=== PATIENT | male | born 1945 | race Caucasian/White ===

== ENCOUNTER → 2016-07-08 | Outpatient (REF) | payer OTHER | LOC: M SFHCPLAZ 15:40 | PROVIDERS: ATTEND Dermatology | DX: L82.0 Inflamed seborrheic keratosis (principal); C44.42 Squamous cell carcinoma of skin of scalp and neck ==

== ENCOUNTER → 2016-08-21 | Outpatient (REF) | payer OTHER | LOC: M LAB REF 13:09 | PROVIDERS: ATTEND Surgery | DX: C44.42 Squamous cell carcinoma of skin of scalp and neck (principal) ==

== ENCOUNTER → 2016-10-22 | Outpatient (REF) | payer OTHER ==
[2016-10-22 19:23] LABS: MEAN CORPUSCULAR HEMOGLOBIN 31.9 pg (27.0-33.0); MEAN CORPUSCULAR VOLUME 96.7 fl (80.0-96.0); WHITE BLOOD COUNT 7.4 K/mm3 (4.0-10.0)
[2016-10-22 19:35] LABS: ALBUMIN 3.9 GM/DL (3.2-5.2); ALBUMIN/GLOBULIN RATIO 1.22 (1.00-1.93); ALKALINE PHOSPHATASE 66 U/L (45-117); ALT/SGPT 22 U/L (12-78); ANION GAP 8 MEQ/L (8-16); AST/SGOT 9 U/L (15-37); BILIRUBIN,TOTAL 0.4 MG/DL (0.2-1.0); BLOOD UREA NITROGEN 13 MG/DL (7-18); CALCIUM LEVEL 8.7 MG/DL (8.8-10.2); CARBON DIOXIDE LEVEL 27 MEQ/L (21-32); CHLORIDE LEVEL 107 MEQ/L (98-107); CHOLESTEROL LEVEL 138 MG/DL (<200); CREATININE FOR GFR 0.95 MG/DL (0.70-1.30); GLOMERULAR FILTRATION RATE > 60.0 (>42); GLUCOSE, FASTING 136 MG/DL (83-110); POTASSIUM SERUM 4.2 MEQ/L (3.5-5.1); SODIUM LEVEL 142 MEQ/L (136-145); TOTAL PROTEIN 7.1 GM/DL (6.4-8.2); TRIGLYCERIDES LEVEL 155 MG/DL (<150)
== END ==
LOC: M SFHCADAM 10:38
PROVIDERS: ATTEND Family Medicine
DX: I25.10 Atherosclerotic heart disease of native coronary artery without angina pectoris (principal); E78.00 Pure hypercholesterolemia, unspecified; Z12.5 Encounter for screening for malignant neoplasm of prostate
CPT/HCPCS: 80053; 80061; 85027; G0103

== ENCOUNTER → 2018-01-13 | Outpatient (REF) | payer OTHER ==
[2018-01-13 11:30] LABS: HEMATOCRIT 44.1 % (42.0-52.0); HEMOGLOBIN 14.6 g/dl (13.5-17.5); MEAN CORPUSCULAR HEMOGLOBIN 32.7 pg (27.0-33.0); MEAN CORPUSCULAR HGB CONC 33.1 g/dl (32.0-36.5); MEAN CORPUSCULAR VOLUME 98.7 fl (80.0-96.0); PLATELET COUNT, AUTOMATED 119 10^3/uL (150-450); RED BLOOD COUNT 4.47 10^6/uL (4.30-6.10); WHITE BLOOD COUNT 6.7 10^3/uL (4.0-10.0)
[2018-01-13 13:07] LABS: ALBUMIN 3.8 GM/DL (3.2-5.2); ALBUMIN/GLOBULIN RATIO 1.27 (1.00-1.93); ALKALINE PHOSPHATASE 60 U/L (45-117); ALT/SGPT 25 U/L (12-78); ANION GAP 5 MEQ/L (8-16); AST/SGOT 13 U/L (7-37); BILIRUBIN,TOTAL 0.5 MG/DL (0.2-1.0); BLOOD UREA NITROGEN 14 MG/DL (7-18); CALCIUM LEVEL 8.8 MG/DL (8.8-10.2); CARBON DIOXIDE LEVEL 29 MEQ/L (21-32); CHLORIDE LEVEL 108 MEQ/L (98-107); CHOLESTEROL LEVEL 110 MG/DL (<200); CREATININE FOR GFR 0.93 MG/DL (0.70-1.30); GLOMERULAR FILTRATION RATE > 60.0 (>42); GLUCOSE, FASTING 84 MG/DL (70-100); HDL CHOLESTEROL 26 MG/DL (>40); LDL CHOLESTEROL 62.2 MG/DL (<100); NON-HDL-C 84 MG/DL; POTASSIUM SERUM 4.3 MEQ/L (3.5-5.1); SODIUM LEVEL 142 MEQ/L (136-145); TOTAL PROTEIN 6.8 GM/DL (6.4-8.2); TRIGLYCERIDES LEVEL 109 MG/DL (<150)
== END ==
LOC: M SFHCPLAZ 08:45
DX: I25.10 Atherosclerotic heart disease of native coronary artery without angina pectoris (principal); E78.00 Pure hypercholesterolemia, unspecified; Z12.5 Encounter for screening for malignant neoplasm of prostate
CPT/HCPCS: 80053

== ENCOUNTER → 2018-08-12 | Outpatient (CLI) | payer OTHER ==
--- NOTE | 2018-08-19 13:21 | SLEEPCENT ---
DATE OF PROCEDURE: 08/12/2018 ORDERED BY: CARLIN Mercado Nocturnal polysomnography was performed for evaluation of sleep physiology in this patient with a history of snoring and irregular breathing and sleep who has comorbidity of coronary artery disease. 7 hours and 13 minutes of data were reviewed. There were 386 minutes of sleep identified. Sleep occurred at the extinguishing of the lights. Rapid eye movement (REM) latency was also short at 47 minutes. Sleep architecture was fairly good with four REM cycles, mild fragmentation was seen. Overall sleep efficiency 92.5%. The patient's electrocardiogram showed sinus rhythm with an average heart rate of 44 beats per minute. Rate ranged 40-64. EEG showed fairly normal waveforms for awake and sleep. There were 125 respiratory events identified of 10 seconds in duration or greater for an apnea-hypopnea index of 19.4. The events were more commonly obstructive, but 21 mixed and central apneas were also seen. Respiratory events were not stage nor positionally related. Arousals from respiratory events occurred 15.4 times per hour and oxygen desaturations were seen into the mid 80s. There was some activity in the limb leads, but arousals were few. IMPRESSION: Obstructive sleep apnea syndrome (G47.33). Apnea-hypopnea index 19.4. RECOMMENDATION: The patient should be encouraged to return to the sleep disorder center for pressure therapy. In the interim, alcohol and sedative avoidance should be practiced and caution exercised during operation of motor vehicles. cc: Luís Bojorquez MD
== END ==
LOC: M SLEEP 19:31
PROVIDERS: ATTEND Nurse Practitioner Family
DX: G47.30 Sleep apnea, unspecified (principal)

== ENCOUNTER → 2018-09-01 | Outpatient (CLI) | payer OTHER ==
--- NOTE | 2018-09-07 10:38 | SLEEPCENT ---
DATE OF PROCEDURE: 09/01/2018 ORDERED BY: CARLIN Mercado Nocturnal polysomnography was performed for the titration of pressure therapy in this patient with obstructive sleep apnea syndrome. Apnea-hypopnea index of 19.4. For testing a [employer] and [employer] full face mask was used; 4 cm of water pressure were applied to the circuit and the lights were extinguished. 7 hours and 48 minutes of data were reviewed. There were 392 minutes of sleep identified. Sleep latency was short at 24 minutes. Rapid eye movement (REM) latency was short at 49 minutes. Sleep architecture was good with 4 REM cycles. Overall sleep efficiency was 84.8%. The electrocardiogram showed sinus rhythm with an average heart rate of 66 beats per minute. Occasional premature ventricular contractions (PVCs) were identified. EEG showed normal waveforms for awake and sleep. Respiratory events appeared fairly well palliated at a CPAP pressure of 10 late in the study. The patient moved to the supine posture and experienced additional events. An optimal CPAP pressure is difficult to identify. However, based on the results, initiation of CPAP at a pressure of +12 appeared to be sufficient to overcome most respiratory events particularly out of the supine posture. IMPRESSION: Obstructive sleep apnea syndrome (G47.33). RECOMMENDATIONS: Nightly use of CPAP 12 cm of water ideally with sleep position retraining should be sufficient to address the patient's obstructive respiratory events. If symptoms persist, re-titration may be necessary to overcome supine related obstruction.
== END ==
LOC: M SLEEP 19:31
PROVIDERS: ATTEND Nurse Practitioner Family
DX: G47.33 Obstructive sleep apnea (adult) (pediatric) (principal)

== ENCOUNTER → 2018-09-16 | Outpatient (REF) | payer OTHER ==
[2018-09-16 19:38] LABS: ALBUMIN 4.4 GM/DL (3.2-5.2); ALT/SGPT 25 U/L (12-78); BILIRUBIN,TOTAL 0.6 MG/DL (0.2-1.0); BLOOD UREA NITROGEN 14 MG/DL (7-18); CALCIUM LEVEL 9.3 MG/DL (8.8-10.2); CARBON DIOXIDE LEVEL 26 MEQ/L (21-32); CHLORIDE LEVEL 107 MEQ/L (98-107); CHOLESTEROL LEVEL 139 MG/DL (<200); CHOLESTEROL RISK RATIO 5.346 (<5); CREATININE FOR GFR 0.89 MG/DL (0.70-1.30); GLOMERULAR FILTRATION RATE > 60.0 (>42); GLUCOSE, FASTING 64 MG/DL (70-100); HDL CHOLESTEROL 26 MG/DL (>40); LDL CHOLESTEROL 76 MG/DL (<100); NON-HDL-C 113 MG/DL; POTASSIUM SERUM 4.4 MEQ/L (3.5-5.1); SODIUM LEVEL 140 MEQ/L (136-145); TOTAL PROTEIN 7.6 GM/DL (6.4-8.2); TRIGLYCERIDES LEVEL 183 MG/DL (<150)
[2018-09-16 19:41] LABS: HEMATOCRIT 46.8 % (42.0-52.0); HEMOGLOBIN 15.8 g/dl (13.5-17.5); MEAN CORPUSCULAR HEMOGLOBIN 33.2 pg (27.0-33.0); MEAN CORPUSCULAR HGB CONC 33.8 g/dl (32.0-36.5); MEAN CORPUSCULAR VOLUME 98.3 fl (80.0-96.0); PLATELET COUNT, AUTOMATED 127 10^3/uL (150-450); RED BLOOD COUNT 4.76 10^6/uL (4.30-6.10)
== END ==
LOC: M SFHCADAM 11:46
PROVIDERS: ATTEND Family Medicine
DX: I25.10 Atherosclerotic heart disease of native coronary artery without angina pectoris (principal); E78.00 Pure hypercholesterolemia, unspecified; Z12.5 Encounter for screening for malignant neoplasm of prostate

== ENCOUNTER → 2019-03-24 | Outpatient (REF) | payer OTHER ==
[2019-03-24 12:17] LABS: HEMOGLOBIN 14.1 g/dl (13.5-17.5); MEAN CORPUSCULAR HEMOGLOBIN 32.9 pg (27.0-33.0); MEAN CORPUSCULAR HGB CONC 32.8 g/dl (32.0-36.5); MEAN CORPUSCULAR VOLUME 100.2 fl (80.0-96.0); PLATELET COUNT, AUTOMATED 120 10^3/uL (150-450); RED BLOOD COUNT 4.29 10^6/uL (4.30-6.10); WHITE BLOOD COUNT 5.3 10^3/uL (4.0-10.0)
[2019-03-24 12:40] LABS: ALBUMIN 3.9 GM/DL (3.2-5.2); ALT/SGPT 18 U/L (12-78); BILIRUBIN,TOTAL 0.6 MG/DL (0.2-1.0); BLOOD UREA NITROGEN 14 MG/DL (7-18); CALCIUM LEVEL 8.7 MG/DL (8.8-10.2); CARBON DIOXIDE LEVEL 29 MEQ/L (21-32); CHLORIDE LEVEL 106 MEQ/L (98-107); CHOLESTEROL LEVEL 108 MG/DL (<200); CREATININE FOR GFR 0.87 MG/DL (0.70-1.30); GLOMERULAR FILTRATION RATE > 60.0 (>42); GLUCOSE, FASTING 69 MG/DL (70-100); HDL CHOLESTEROL 24 MG/DL (>40); LDL CHOLESTEROL 63 MG/DL (<100); NON-HDL-C 84 MG/DL; SODIUM LEVEL 141 MEQ/L (136-145); TOTAL PROTEIN 6.8 GM/DL (6.4-8.2); TRIGLYCERIDES LEVEL 106 MG/DL (<150)
== END ==
LOC: M SFHCADAM 08:44
PROVIDERS: ATTEND Family Medicine
DX: I25.10 Atherosclerotic heart disease of native coronary artery without angina pectoris (principal); E78.00 Pure hypercholesterolemia, unspecified; Z12.5 Encounter for screening for malignant neoplasm of prostate

== ENCOUNTER → 2020-08-07 | Outpatient (REF) | payer MEDICARE, OTHER ==
[2020-08-07 17:54] LABS: BASO # 0.1 10^3/uL (0.0-0.2); BASO % 0.7 % (0.0-1.0); EOS # 0.1 10^3/uL (0.0-0.5); EOS % 0.6 % (0.0-3.0); HEMATOCRIT 44.5 % (42.0-52.0); HEMOGLOBIN 14.7 g/dl (13.5-17.5); LYMPH # 1.6 10^3/uL (1.5-5.0); LYMPH % 13.2 % (24.0-44.0); MEAN CORPUSCULAR HEMOGLOBIN 32.2 pg (27.0-33.0); MEAN CORPUSCULAR VOLUME 97.4 fl (80.0-96.0); MONO # 6.2 10^3/uL (0.0-0.8); MONO % 49.9 % (0.0-5.0); NEUTROPHILS # 3.9 10^3/uL (1.5-8.5); NEUTROPHILS % 31.3 % (36.0-66.0); RED BLOOD COUNT 4.57 10^6/uL (4.30-6.10); WHITE BLOOD COUNT 12.5 10^3/uL (4.0-10.0)
[2020-08-07 18:22] LABS: ALBUMIN 4.4 GM/DL (3.2-5.2); ALT/SGPT 18 U/L (12-78); BILIRUBIN,TOTAL 0.5 MG/DL (0.2-1.0); BLOOD UREA NITROGEN 16 MG/DL (7-18); C REACTIVE PROTEIN QUANTITATIV 5.33 MG/DL (0.00-0.30); CALCIUM LEVEL 9.9 MG/DL (8.8-10.2); CARBON DIOXIDE LEVEL 28 MEQ/L (21-32); CHLORIDE LEVEL 101 MEQ/L (98-107); CREATININE FOR GFR 1.12 MG/DL (0.70-1.30); GLOMERULAR FILTRATION RATE > 60.0 (>42); GLUCOSE, FASTING 95 MG/DL (70-100); LIPASE 35 U/L (73-393); POTASSIUM SERUM 5.2 MEQ/L (3.5-5.1); SODIUM LEVEL 136 MEQ/L (136-145); TOTAL PROTEIN 7.9 GM/DL (6.4-8.2)
[2020-08-07 18:31] LABS: PLATELET COUNT, AUTOMATED 49 10^3/uL (150-450)
[2020-08-07 19:30] LABS: ERYTHROCYTE SEDIMENTATION RATE 15 mm/hr (0-20)
== END ==
LOC: M PLALAB 17:05
PROVIDERS: ATTEND Physician Assistant
DX: R10.32 Left lower quadrant pain (principal)

== ENCOUNTER → 2020-08-08 | Outpatient (CLI) | payer MEDICARE, OTHER ==
[~2020-08-08] MED LIST: GASTROGRAFIN SOLUTION 30ML (Q9963) As Ordered ONE; ISOVUE-370 76% 100ML VIAL As Ordered ONE
--- NOTE | 2020-08-08 16:40 | REP ---
INDICATION: LEFT LOWER QUADRANT PAIN, R/O DIVERTICULITIS. COMPARISON: None TECHNIQUE: Axial contrast-enhanced images from the lung bases to the pubic symphysis using oral and 100 cc Isovue 370 intravenous contrast material. Coronal and sagittal reformations obtained. This CT examination was performed using the following dose reduction techniques: Automated exposure control, adjustment of mA and/or kv according to the patient's size, and the use of iterative reconstruction technique. FINDINGS: Colonic and primarily descending and sigmoid diverticulosis is appreciated and there is subtle pericolonic inflammatory stranding involving the region of the splenic flexure and proximal. Descending colon suggesting mild early acute diverticulitis. No associated bowel obstruction, perforation, free air, ascites or drainable collection/abscess. Remainder of the enteric system is grossly normal. Terminal ileum and appendix are identified and unremarkable. Liver, pancreas, gallbladder, bilateral adrenal glands and kidneys are relatively normal. Few scattered small renal hypodensities measuring up to 2 cm likely represent benign cysts. Splenomegaly is appreciated without focal splenic lesion. Pelvis demonstrates normal bladder and mild prostatomegaly with parenchymal calcifications noted. No significant adenopathy. Abdominal aorta and vasculature without aneurysm or dissection. Musculoskeletal structures demonstrate age-related changes without focal osseous abnormality. IMPRESSION: 1. Findings suggest very mild early acute diverticulitis involving the splenic flexure and proximal descending colon. No associated bowel obstruction or perforation. No drainable collection or abscess. 2. Splenomegaly without focal splenic lesion. No adenopathy. 3. Chronic appearing prostatomegaly. <Electronically signed by Micha Tubbs > 08/08/20 [id number]
== END ==
LOC: M RAD 14:36
PROVIDERS: ATTEND Physician Assistant
DX: K57.32 Diverticulitis of large intestine without perforation or abscess without bleeding (principal); R16.1 Splenomegaly, not elsewhere classified; R10.32 Left lower quadrant pain
CPT/HCPCS: 74177; Q9963; Q9967

== ENCOUNTER → 2020-08-17 | Outpatient (CLI) | payer MEDICARE, OTHER ==
--- NOTE | 2020-08-17 11:27 | REP ---
INDICATION: DIVERTICULITIS COMPARISON: Comparison CT study abdomen pelvis August 08, 2020.. TECHNIQUE: Helical scanning is acquired in 4 mm axial images were reformatted. Coronal and sagittal MPR images were generated and reviewed. FINDINGS: Preliminary digital managing director radiograph demonstrates an unremarkable bowel gas pattern. The lung bases are essentially clear. There is no evidence of pleural effusion. Moderate splenic enlargement is again seen. The spleen measures 17.8 cm in craniocaudal span by 17.4 cm anteroposterior. It is unchanged. No focal splenic lesion is seen. No focal liver lesion is seen. Normal adrenal glands are observed. There are 1 or 2 portal caval lymph nodes in the upper abdomen unchanged. The largest of these has a 14 mm short axis dimension. There are scattered normal sized periaortic lymph nodes. No definite adenopathy. No evidence of hydronephrosis. There is a small cyst in the right kidney posteriorly. This is unchanged. Normal caliber aorta. A normal appendix is seen posterior to the cecum in the right lower quadrant. There are dystrophic calcifications in the enlarged prostate. Seminal vesicles and urinary bladder are unremarkable. Left colonic diverticulosis is seen in the descending colon. The previously noted para colonic streaking and paracolic gutter fluid have resolved. There is no current CT evidence of diverticulitis. No abdominal wall defect is seen. No bony destructive lesion is appreciated. IMPRESSION: Moderate splenomegaly. Left colonic diverticulosis. Previously noted pericolic gutter streaking resolved. No current CT evidence of diverticulitis. Normal appendix. <Electronically signed by Andrade Licona > 08/17/20 [id number]
[2020-08-17 12:01] LABS: HEMATOCRIT 38.9 % (42.0-52.0); HEMOGLOBIN 13.1 g/dl (13.5-17.5); MEAN CORPUSCULAR HEMOGLOBIN 32.9 pg (27.0-33.0); MEAN CORPUSCULAR HGB CONC 33.7 g/dl (32.0-36.5); MEAN CORPUSCULAR VOLUME 97.7 fl (80.0-96.0); RED BLOOD COUNT 3.98 10^6/uL (4.30-6.10)
[2020-08-17 12:20] LABS: ALBUMIN 3.6 GM/DL (3.2-5.2); ALT/SGPT 19 U/L (12-78); BILIRUBIN,TOTAL 0.4 MG/DL (0.2-1.0); BLOOD UREA NITROGEN 14 MG/DL (7-18); C REACTIVE PROTEIN QUANTITATIV 5.36 MG/DL (0.00-0.30); CALCIUM LEVEL 8.9 MG/DL (8.8-10.2); CARBON DIOXIDE LEVEL 23 MEQ/L (21-32); CHLORIDE LEVEL 104 MEQ/L (98-107); CREATININE FOR GFR 0.94 MG/DL (0.70-1.30); GLOMERULAR FILTRATION RATE > 60.0 (>42); GLUCOSE, FASTING 153 MG/DL (70-100); POTASSIUM SERUM 3.9 MEQ/L (3.5-5.1); SODIUM LEVEL 136 MEQ/L (136-145); TOTAL PROTEIN 6.5 GM/DL (6.4-8.2)
[2020-08-17 13:36] LABS: PLATELET COUNT, AUTOMATED 21 10^3/uL (150-450); WHITE BLOOD COUNT 35.6 10^3/uL (4.0-10.0)
[2020-08-17 13:38] LABS: BLAST CELLS 71 % (0-0); LYMPHOCYTES 13 % (16-44); NEUTROPHILS 16 % (28-66)
[2020-08-17 13:39] LABS: PLATELET ESTIMATE MARKED DECREASE (NORMAL); SMUDGE CELLS 1+
== END ==
LOC: M RAD 11:00
PROVIDERS: ATTEND Family Medicine
DX: K57.30 Diverticulosis of large intestine without perforation or abscess without bleeding (principal); R16.1 Splenomegaly, not elsewhere classified; N28.1 Cyst of kidney, acquired; K57.92 Diverticulitis of intestine, part unspecified, without perforation or abscess without bleeding

== ENCOUNTER → 2020-08-17 | Outpatient (REF) | payer MEDICARE, OTHER | LOC: M SFHCADAM 09:52 | PROVIDERS: ATTEND Family Medicine | DX: K57.92 Diverticulitis of intestine, part unspecified, without perforation or abscess without bleeding (principal) ==

== ENCOUNTER → 2020-08-21 | Outpatient (CLI) | payer MEDICARE, OTHER ==
[2020-08-21 14:42] LABS: HEMOGLOBIN 11.5 g/dl (13.5-17.5); MEAN CORPUSCULAR HEMOGLOBIN 31.9 pg (27.0-33.0); MEAN CORPUSCULAR HGB CONC 31.9 g/dl (32.0-36.5); MEAN CORPUSCULAR VOLUME 99.7 fl (80.0-96.0); RED BLOOD COUNT 3.61 10^6/uL (4.30-6.10); WHITE BLOOD COUNT 25.9 10^3/uL (4.0-10.0)
[2020-08-21 14:48] LABS: PLATELET COUNT, AUTOMATED 12 10^3/uL (150-450)
== END ==
LOC: M LAB 13:51
PROVIDERS: ATTEND Internal Medicine Hematology & Oncology
DX: H91.90 Unspecified hearing loss, unspecified ear (principal); D50.9 Iron deficiency anemia, unspecified

== ENCOUNTER → 2020-08-22 | Outpatient (CLI) | payer MEDICARE, OTHER | LOC: M LAB 16:06 | PROVIDERS: ATTEND Internal Medicine Hematology & Oncology | DX: C92.00 Acute myeloblastic leukemia, not having achieved remission (principal) ==

== ENCOUNTER 2020-08-23 07:58 | Outpatient (CLI) | payer MEDICARE, OTHER ==
[~2020-08-23] VITALS: Ht 182.9 cm; Wt 97.2 kg
[~2020-08-23 07:58] MED LIST changes: +ACETAMINOPHEN TAB 650MG DOSE (2X325MG) PO SCH; -GASTROGRAFIN SOLUTION 30ML (Q9963) As Ordered ONE; -ISOVUE-370 76% 100ML VIAL As Ordered ONE; +SODIUM CHLORIDE 0.9% INJ 10 ML SYR IV PRN; +diphenhydrAMINE 25MG CAP PO SCH
[2020-08-23 08:00] VITALS: BP 137/60
[2020-08-23 08:44] VITALS: BP 137/60
[2020-08-23 09:00] VITALS: BP 101/51
[2020-08-23] MEDS ORDERED: SODIUM CHLORIDE 0.9% INJ 10 ML SYR IV SCH (09:00)
[2020-08-23 09:45] VITALS: BP 107/52
[2020-08-23 10:00] VITALS: BP 111/61
== END 2020-08-23 10:00 | disposition home or self-care (01) ==
LOC: M INFU 07:58
PROVIDERS: ATTEND Internal Medicine Hematology & Oncology
DX: C92.00 Acute myeloblastic leukemia, not having achieved remission (principal)

== ENCOUNTER → 2020-08-24 | Outpatient (CLI) | payer MEDICARE, OTHER ==
[2020-08-24 12:06] LABS: HEMATOCRIT 33.8 % (42.0-52.0); MEAN CORPUSCULAR HEMOGLOBIN 32.7 pg (27.0-33.0); MEAN CORPUSCULAR HGB CONC 32.5 g/dl (32.0-36.5); MEAN CORPUSCULAR VOLUME 100.6 fl (80.0-96.0); RED BLOOD COUNT 3.36 10^6/uL (4.30-6.10)
[2020-08-24 12:14] LABS: WHITE BLOOD COUNT 39.7 10^3/uL (4.0-10.0)
[2020-08-24 12:15] LABS: PLATELET COUNT, AUTOMATED 15 10^3/uL (150-450)
== END ==
LOC: M LAB 10:30
PROVIDERS: ATTEND Internal Medicine Hematology & Oncology
DX: C92.00 Acute myeloblastic leukemia, not having achieved remission (principal)

== ENCOUNTER 2020-09-04 12:30 | Outpatient (CLI) | payer MEDICARE, OTHER ==
[~2020-09-04] VITALS: Ht 182.9 cm; Wt 97.2 kg
[2020-09-04] MEDS ORDERED: diphenhydrAMINE 25MG CAP PO ONE (12:35)
[2020-09-04] MEDS ORDERED: ACETAMINOPHEN TAB 650MG DOSE (2X325MG) PO ONE (12:35)
[2020-09-04 12:44] VITALS: BP 132/60
[2020-09-04 13:06] VITALS: BP 132/60
[2020-09-04 13:29] VITALS: BP 117/59
[2020-09-04 14:35] VITALS: BP 122/56
[2020-09-04 14:45] VITALS: BP 122/56
[2020-09-04 14:58] LABS: HEMATOCRIT 24.5 % (42.0-52.0); HEMOGLOBIN 7.8 g/dl (13.5-17.5); MEAN CORPUSCULAR HEMOGLOBIN 31.5 pg (27.0-33.0); MEAN CORPUSCULAR HGB CONC 31.8 g/dl (32.0-36.5); MEAN CORPUSCULAR VOLUME 98.8 fl (80.0-96.0); RED BLOOD COUNT 2.48 10^6/uL (4.30-6.10)
[2020-09-04 15:03] LABS: WHITE BLOOD COUNT 0.9 10^3/uL (4.0-10.0)
[2020-09-04 15:07] LABS: PLATELET COUNT, AUTOMATED 6 10^3/uL (150-450)
== END 2020-09-04 14:45 | disposition home or self-care (01) ==
LOC: M INFU 12:30
PROVIDERS: ATTEND Internal Medicine Hematology & Oncology
DX: C92.00 Acute myeloblastic leukemia, not having achieved remission (principal); Z88.1 Allergy status to other antibiotic agents
CPT/HCPCS: 36430; 85027; 85049; 85055; P9034

== ENCOUNTER 2020-09-05 12:05 | Outpatient (CLI) | payer MEDICARE, OTHER ==
[~2020-09-05] VITALS: Ht 182.9 cm; Wt 97.2 kg
[2020-09-05 12:00] VITALS: BP 136/66
[~2020-09-05 12:05] MED LIST changes: -SODIUM CHLORIDE 0.9% INJ 10 ML SYR IV PRN
[2020-09-05 13:15] VITALS: BP 128/64
[2020-09-05 14:15] VITALS: BP 132/66
[2020-09-05 14:55] LABS: HEMATOCRIT 23.3 % (42.0-52.0); HEMOGLOBIN 7.6 g/dl (13.5-17.5); MEAN CORPUSCULAR HEMOGLOBIN 31.9 pg (27.0-33.0); MEAN CORPUSCULAR HGB CONC 32.6 g/dl (32.0-36.5); MEAN CORPUSCULAR VOLUME 97.9 fl (80.0-96.0); RED BLOOD COUNT 2.38 10^6/uL (4.30-6.10); WHITE BLOOD COUNT 1.1 10^3/uL (4.0-10.0)
[2020-09-05 14:58] LABS: PLATELET COUNT, AUTOMATED 9 10^3/uL (150-450)
[2020-09-05 15:00] VITALS: BP 124/58
== END 2020-09-05 15:00 | disposition home or self-care (01) ==
LOC: M INFU 12:05
PROVIDERS: ATTEND Internal Medicine Hematology & Oncology
DX: C92.00 Acute myeloblastic leukemia, not having achieved remission (principal)
CPT/HCPCS: 36430; 36592; 85027; 85049; 85055; P9034

== ENCOUNTER → 2020-09-06 | Outpatient (CLI) | payer MEDICARE, OTHER ==
[~2020-09-06] MED LIST changes: -ACETAMINOPHEN TAB 650MG DOSE (2X325MG) PO SCH; +ACYC400T PO; +ALLO10TA PO; +ASPI81CH33 PO; +CIPR-249 PO; +CIPR500S PO; +D31000TA2 PO; +FLUC100T PO; +FLUC200T2 PO; +LIPI10TA PO; +PROC10TA4 PO; +PROC5TAB57 PO; +RA S8.6T3 PO; +TIMO0.2529 OU; +VENC100T PO; +VIDA100I IV; -diphenhydrAMINE 25MG CAP PO SCH
[2020-09-06 13:58] LABS: HEMATOCRIT 26.3 % (42.0-52.0); HEMOGLOBIN 8.6 g/dl (13.5-17.5); MEAN CORPUSCULAR HEMOGLOBIN 31.6 pg (27.0-33.0); MEAN CORPUSCULAR HGB CONC 32.7 g/dl (32.0-36.5); MEAN CORPUSCULAR VOLUME 96.7 fl (80.0-96.0); RED BLOOD COUNT 2.72 10^6/uL (4.30-6.10); WHITE BLOOD COUNT 1.2 10^3/uL (4.0-10.0)
[2020-09-06 14:00] LABS: PLATELET COUNT, AUTOMATED 3 10^3/uL (150-450)
== END ==
LOC: M LAB 13:39
PROVIDERS: ATTEND Internal Medicine Hematology & Oncology
DX: H91.90 Unspecified hearing loss, unspecified ear (principal); Z79.899 Other long term (current) drug therapy

== ENCOUNTER 2020-09-07 08:31 | Outpatient (CLI) | payer MEDICARE, OTHER ==
[~2020-09-07] VITALS: Ht 182.9 cm; Wt 88.6 kg
[~2020-09-07 08:31] MED LIST changes: +ACETAMINOPHEN TAB 650MG DOSE (2X325MG) PO SCH; -ACYC400T PO; -ALLO10TA PO; -ASPI81CH33 PO; -CIPR-249 PO; -CIPR500S PO; -D31000TA2 PO; -FLUC100T PO; -FLUC200T2 PO; -LIPI10TA PO; -PROC10TA4 PO; -PROC5TAB57 PO; -RA S8.6T3 PO; -TIMO0.2529 OU; -VENC100T PO; -VIDA100I IV; +diphenhydrAMINE 25MG CAP PO SCH
[2020-09-07 09:06] VITALS: BP 112/61
[2020-09-07] MEDS ORDERED: VIDA100I IV (09:18)
[2020-09-07] MEDS ORDERED: LIPI10TA PO (09:18)
[2020-09-07] MEDS ORDERED: PROC5TAB57 PO (09:18)
[2020-09-07] MEDS ORDERED: CIPR-249 PO (09:18)
[2020-09-07] MEDS ORDERED: FLUC200T2 PO (09:18)
[2020-09-07] MEDS ORDERED: FLUC100T PO (09:18)
[2020-09-07] MEDS ORDERED: VENC100T PO (09:18)
[2020-09-07] MEDS ORDERED: ACYC400T PO (09:18)
[2020-09-07] MEDS ORDERED: ALLO10TA PO (09:18)
[2020-09-07] MEDS ORDERED: ASPI81CH33 PO (09:18)
[2020-09-07 09:45] VITALS: BP 118/57
[2020-09-07 10:45] VITALS: BP 117/58
[2020-09-07 11:20] VITALS: BP 123/80
[2020-09-07 11:44] LABS: HEMATOCRIT 22.3 % (42.0-52.0); HEMOGLOBIN 7.5 g/dl (13.5-17.5); MEAN CORPUSCULAR HEMOGLOBIN 31.9 pg (27.0-33.0); MEAN CORPUSCULAR HGB CONC 33.6 g/dl (32.0-36.5); MEAN CORPUSCULAR VOLUME 94.9 fl (80.0-96.0); RED BLOOD COUNT 2.35 10^6/uL (4.30-6.10)
[2020-09-07 11:56] LABS: WHITE BLOOD COUNT 0.8 10^3/uL (4.0-10.0)
[2020-09-07 11:57] LABS: PLATELET COUNT, AUTOMATED 11 10^3/uL (150-450)
[2020-09-07 12:20] VITALS: BP 118/72
[2020-09-07 13:20] VITALS: BP 124/78
== END 2020-09-07 13:20 | disposition home or self-care (01) ==
LOC: M INFU 08:31
PROVIDERS: ATTEND Internal Medicine Hematology & Oncology
DX: C92.00 Acute myeloblastic leukemia, not having achieved remission (principal)
CPT/HCPCS: 36430; 36592; 85027; 85049; 85055; P9036

== ENCOUNTER 2020-09-09 11:38 | Emergency (ER) | payer MEDICARE, OTHER ==
[~2020-09-09] VITALS: Ht 185.4 cm; Wt 88.6 kg
[~2020-09-09 11:38] MED LIST changes: -ACETAMINOPHEN TAB 650MG DOSE (2X325MG) PO SCH; +ACYC400T PO; +ALLO10TA PO; +ASPI81CH33 PO; +CIPR-249 PO; +FLUC100T PO; +FLUC200T2 PO; +LIPI10TA PO; +PROC5TAB57 PO; +VENC100T PO; +VIDA100I IV; -diphenhydrAMINE 25MG CAP PO SCH
[2020-09-09] MEDS ORDERED: RA S8.6T3 PO (12:13)
[2020-09-09] MEDS ORDERED: D31000TA2 PO (12:13)
[2020-09-09] MEDS ORDERED: TIMO0.2529 OU (12:13)
[2020-09-09] MEDS ORDERED: PROC10TA4 PO (12:14)
[2020-09-09] MEDS ORDERED: CIPR500S PO (12:16)
[2020-09-09 13:01] LABS: HEMATOCRIT 23.3 % (42.0-52.0); HEMOGLOBIN 7.7 g/dl (13.5-17.5); MEAN CORPUSCULAR HEMOGLOBIN 30.9 pg (27.0-33.0); MEAN CORPUSCULAR VOLUME 93.6 fl (80.0-96.0); RED BLOOD COUNT 2.49 10^6/uL (4.30-6.10)
[2020-09-09 13:02] LABS: PLATELET COUNT, AUTOMATED 3 10^3/uL (150-450); WHITE BLOOD COUNT 0.9 10^3/uL (4.0-10.0)
[2020-09-09 13:10] LABS: INR 1.25
[2020-09-09 13:11] LABS: PARTIAL THROMBOPLASTIN TIME 33.2 SECONDS (24.2-38.5)
[2020-09-09 13:19] LABS: EOSINOPHILS 2 % (0-3); LYMPHOCYTES 86 % (16-44); MONOCYTES 3 % (0-5); NEUTROPHILS 9 % (28-66)
[2020-09-09 13:20] LABS: PLATELET ESTIMATE MARKED DECREASE (NORMAL)
[2020-09-09 13:32] LABS: ALBUMIN 3.4 GM/DL (3.2-5.2); ALT/SGPT 18 U/L (12-78); BILIRUBIN,DIRECT 0.2 MG/DL (0.0-0.2); BILIRUBIN,TOTAL 0.7 MG/DL (0.2-1.0); BLOOD UREA NITROGEN 14 MG/DL (7-18); CALCIUM LEVEL 8.6 MG/DL (8.8-10.2); CARBON DIOXIDE LEVEL 25 MEQ/L (21-32); CHLORIDE LEVEL 109 MEQ/L (98-107); CK-MB VALUE MASS < 1.0 NG/ML (<3.6); CPK CREATINE PHOSPHOKINASE 12 U/L (39-308); CREATININE FOR GFR 0.81 MG/DL (0.70-1.30); GLOMERULAR FILTRATION RATE > 60.0 (>42); GLUCOSE, FASTING 88 MG/DL (70-100); LIPASE 38 U/L (73-393); MB/CK RELATIVE INDEX 8.33 (< OR =4); SODIUM LEVEL 138 MEQ/L (136-145); TOTAL PROTEIN 6.4 GM/DL (6.4-8.2); TROPONIN I < 0.02 NG/ML (< 0.10)
[2020-09-09] MEDS ORDERED: diphenhydrAMINE 50MG/ML VIAL (J1200) IV STA (14:39)
[2020-09-09] MEDS ORDERED: ACETAMINOPHEN TAB 650MG DOSE (2X325MG) PO ONE (14:40)
[2020-09-09 15:31] LABS: RSV AMPLIFICATION NEGATIVE (NEGATIVE)
[2020-09-09 16:04] VITALS: BP 123/59
[2020-09-09 16:19] VITALS: BP 116/70
[2020-09-09 17:10] VITALS: BP 122/65
[2020-09-09 18:30] VITALS: BP 113/55
== END 2020-09-09 18:40 | disposition short-term general hospital (02) ==
LOC: M ED 11:38
DX: D69.6 Thrombocytopenia, unspecified (principal); D61.818 Other pancytopenia; N40.0 Benign prostatic hyperplasia without lower urinary tract symptoms; E78.9 Disorder of lipoprotein metabolism, unspecified; E21.3 Hyperparathyroidism, unspecified; G47.33 Obstructive sleep apnea (adult) (pediatric); I34.1 Nonrheumatic mitral (valve) prolapse; C92.00 Acute myeloblastic leukemia, not having achieved remission; Z95.5 Presence of coronary angioplasty implant and graft; Z79.899 Other long term (current) drug therapy; Z87.891 Personal history of nicotine dependence
CPT/HCPCS: 36430; 80048; 80076; 82550; 82553; 83690; 84484; 85025; 85049; 85055; 85610; 85730; 86850; 86900; 86901; 87631; 96374; 99285; J1200; P9034

== ENCOUNTER → 2020-09-11 | Outpatient (CLI) | payer MEDICARE, OTHER ==
[~2020-09-11] MED LIST changes: +CIPR500S PO; +D31000TA2 PO; +PROC10TA4 PO; +RA S8.6T3 PO; +TIMO0.2529 OU
[2020-09-11 15:42] LABS: BASO % 1.1 % (0.0-1.0); HEMATOCRIT 23.2 % (42.0-52.0); HEMOGLOBIN 7.8 g/dl (13.5-17.5); LYMPH # 0.7 10^3/uL (1.5-5.0); LYMPH % 80.2 % (24.0-44.0); MEAN CORPUSCULAR HEMOGLOBIN 30.7 pg (27.0-33.0); MEAN CORPUSCULAR HGB CONC 33.6 g/dl (32.0-36.5); MEAN CORPUSCULAR VOLUME 91.3 fl (80.0-96.0); MONO # 0.1 10^3/uL (0.0-0.8); MONO % 7.7 % (2.0-8.0); RED BLOOD COUNT 2.54 10^6/uL (4.30-6.10)
[2020-09-11 15:49] LABS: WHITE BLOOD COUNT 0.9 10^3/uL (4.0-10.0)
[2020-09-11 15:50] LABS: NEUTROPHILS # 0.1 10^3/uL (1.5-8.5); PLATELET COUNT, AUTOMATED 4 10^3/uL (150-450)
[2020-09-11 16:08] LABS: ALBUMIN 3.4 GM/DL (3.2-5.2); ALT/SGPT 20 U/L (12-78); BILIRUBIN,TOTAL 0.6 MG/DL (0.2-1.0); BLOOD UREA NITROGEN 14 MG/DL (7-18); CALCIUM LEVEL 8.3 MG/DL (8.8-10.2); CARBON DIOXIDE LEVEL 26 MEQ/L (21-32); CHLORIDE LEVEL 110 MEQ/L (98-107); CREATININE FOR GFR 0.82 MG/DL (0.70-1.30); GLOMERULAR FILTRATION RATE > 60.0 (>42); GLUCOSE, FASTING 166 MG/DL (70-100); SODIUM LEVEL 139 MEQ/L (136-145); TOTAL PROTEIN 6.4 GM/DL (6.4-8.2)
== END ==
LOC: M LAB 15:25
PROVIDERS: ATTEND Physician Assistant
DX: C92.00 Acute myeloblastic leukemia, not having achieved remission (principal)

== ENCOUNTER 2020-09-12 12:35 | Outpatient (CLI) | payer MEDICARE, OTHER ==
[2020-09-12] VITALS (7 sets, daily range): BP systolic 104–122; BP diastolic 56–77
[2020-09-12] MEDS ORDERED: diphenhydrAMINE 25 MG PO PO ONE (12:45)
[2020-09-12] MEDS ORDERED: ACETAMINOPHEN 650 MG PO PO ONE (12:45)
[2020-09-12 15:32] LABS: HEMATOCRIT 21.7 % (42.0-52.0); HEMOGLOBIN 7.3 g/dl (13.5-17.5); MEAN CORPUSCULAR HEMOGLOBIN 31.2 pg (27.0-33.0); MEAN CORPUSCULAR HGB CONC 33.6 g/dl (32.0-36.5); MEAN CORPUSCULAR VOLUME 92.7 fl (80.0-96.0); RED BLOOD COUNT 2.34 10^6/uL (4.30-6.10)
[2020-09-12 15:37] LABS: WHITE BLOOD COUNT 0.9 10^3/uL (4.0-10.0)
[2020-09-12 15:38] LABS: PLATELET COUNT, AUTOMATED 7 10^3/uL (150-450)
== END 2020-09-12 19:05 | disposition home or self-care (01) ==
LOC: M INFU 12:35
PROVIDERS: ATTEND Internal Medicine Hematology & Oncology
DX: C92.00 Acute myeloblastic leukemia, not having achieved remission (principal)
CPT/HCPCS: 36430; 36592; 85027; 86880; P9034; P9036

== ENCOUNTER 2020-09-14 15:36 | Outpatient (CLI) | payer MEDICARE, OTHER ==
[~2020-09-14] VITALS: Ht 185.4 cm; Wt 91.8 kg
[2020-09-14 15:35] VITALS: BP 112/56
[2020-09-14 16:35] VITALS: BP 96/54
[2020-09-14 17:33] VITALS: BP 107/59
[2020-09-14 18:00] VITALS: BP 102/56
[2020-09-14 18:20] VITALS: BP 102/54
== END 2020-09-14 18:25 | disposition home or self-care (01) ==
LOC: M INFU 15:36
PROVIDERS: ATTEND Internal Medicine Hematology & Oncology
DX: C92.00 Acute myeloblastic leukemia, not having achieved remission (principal)
CPT/HCPCS: 36415; 36430; 85027; 85049; 85055; P9036

== ENCOUNTER → 2020-09-14 | Outpatient (CLI) | payer MEDICARE, OTHER ==
[2020-09-14 09:24] LABS: HEMATOCRIT 22.4 % (42.0-52.0); HEMOGLOBIN 7.5 g/dl (13.5-17.5); MEAN CORPUSCULAR HEMOGLOBIN 31.1 pg (27.0-33.0); MEAN CORPUSCULAR HGB CONC 33.5 g/dl (32.0-36.5); MEAN CORPUSCULAR VOLUME 92.9 fl (80.0-96.0); RED BLOOD COUNT 2.41 10^6/uL (4.30-6.10)
[2020-09-14 09:29] LABS: PLATELET COUNT, AUTOMATED 9 10^3/uL (150-450); WHITE BLOOD COUNT 0.8 10^3/uL (4.0-10.0)
== END ==
LOC: M LAB 08:23
PROVIDERS: ATTEND Internal Medicine Hematology & Oncology
DX: C92.00 Acute myeloblastic leukemia, not having achieved remission (principal)

== ENCOUNTER → 2020-09-17 | Outpatient (CLI) | payer MEDICARE, OTHER ==
[2020-09-17 09:55] LABS: HEMATOCRIT 21.4 % (42.0-52.0); HEMOGLOBIN 7.1 g/dl (13.5-17.5); MEAN CORPUSCULAR HEMOGLOBIN 30.9 pg (27.0-33.0); MEAN CORPUSCULAR HGB CONC 33.2 g/dl (32.0-36.5)
[2020-09-17 10:00] LABS: PLATELET COUNT, AUTOMATED 9 10^3/uL (150-450); WHITE BLOOD COUNT 0.7 10^3/uL (4.0-10.0)
== END ==
LOC: M LAB 09:13
PROVIDERS: ATTEND Internal Medicine Hematology & Oncology
DX: H91.90 Unspecified hearing loss, unspecified ear (principal); Z79.899 Other long term (current) drug therapy

== ENCOUNTER 2020-09-18 13:07 | Outpatient (CLI) | payer MEDICARE, OTHER ==
[~2020-09-18] VITALS: Ht 185.4 cm; Wt 98.1 kg
[~2020-09-18 13:07] MED LIST changes: +ACETAMINOPHEN TAB 650MG DOSE (2X325MG) PO SCH; +diphenhydrAMINE 25MG CAP PO SCH
[2020-09-18 13:25] VITALS: BP 115/64
[2020-09-18 14:01] VITALS: BP 99/52
[2020-09-18 15:10] VITALS: BP 111/51
[2020-09-18 16:05] VITALS: BP 111/51
[2020-09-18 16:20] VITALS: BP 112/52
[2020-09-18 17:31] VITALS: BP 104/56
== END 2020-09-18 17:39 | disposition home or self-care (01) ==
LOC: M INFU 13:07
PROVIDERS: ATTEND Internal Medicine Hematology & Oncology
DX: C92.00 Acute myeloblastic leukemia, not having achieved remission (principal); Z88.1 Allergy status to other antibiotic agents
CPT/HCPCS: 36430; 36592; 86850; 86900; 86901; 86920; P9016; P9034

== ENCOUNTER → 2020-09-19 | Outpatient (CLI) | payer MEDICARE, OTHER ==
[~2020-09-19] MED LIST changes: -ACETAMINOPHEN TAB 650MG DOSE (2X325MG) PO SCH; -diphenhydrAMINE 25MG CAP PO SCH
[2020-09-19 14:56] LABS: HEMATOCRIT 22.7 % (42.0-52.0); HEMOGLOBIN 7.7 g/dl (13.5-17.5); MEAN CORPUSCULAR HEMOGLOBIN 31.6 pg (27.0-33.0); MEAN CORPUSCULAR HGB CONC 33.9 g/dl (32.0-36.5); RED BLOOD COUNT 2.44 10^6/uL (4.30-6.10)
[2020-09-19 15:13] LABS: PLATELET COUNT, AUTOMATED 15 10^3/uL (150-450)
[2020-09-19 15:18] LABS: WHITE BLOOD COUNT 0.9 10^3/uL (4.0-10.0)
== END ==
LOC: M LAB 14:18
PROVIDERS: ATTEND Internal Medicine Hematology & Oncology
DX: H91.90 Unspecified hearing loss, unspecified ear (principal); Z79.899 Other long term (current) drug therapy

== ENCOUNTER → 2020-10-01 | Outpatient (CLI) | payer MEDICARE, OTHER ==
[2020-10-01 12:18] LABS: HEMATOCRIT 22.7 % (42.0-52.0); HEMOGLOBIN 7.4 g/dl (13.5-17.5); MEAN CORPUSCULAR HEMOGLOBIN 31.8 pg (27.0-33.0); MEAN CORPUSCULAR HGB CONC 32.6 g/dl (32.0-36.5); MEAN CORPUSCULAR VOLUME 97.4 fl (80.0-96.0); RED BLOOD COUNT 2.33 10^6/uL (4.30-6.10); WHITE BLOOD COUNT 1.2 10^3/uL (4.0-10.0)
[2020-10-01 13:31] LABS: PLATELET COUNT, AUTOMATED 10 10^3/uL (150-450)
== END ==
LOC: M LAB 11:08
PROVIDERS: ATTEND Internal Medicine Hematology & Oncology
DX: H91.90 Unspecified hearing loss, unspecified ear (principal); Z79.899 Other long term (current) drug therapy

== ENCOUNTER → 2020-10-02 | Outpatient (CLI) | payer MEDICARE, OTHER ==
[~2020-10-02] VITALS: Ht 185.4 cm; Wt 98.1 kg
[2020-10-02 14:06] VITALS: BP 114/68
[2020-10-02 14:20] VITALS: BP 106/57
[2020-10-02 15:20] VITALS: BP 134/58
[2020-10-02 15:55] VITALS: BP 106/52
== END ==
LOC: M INFU 13:37
PROVIDERS: ATTEND Physician Assistant
DX: C92.00 Acute myeloblastic leukemia, not having achieved remission (principal)
CPT/HCPCS: 36430; P9034

== ENCOUNTER → 2020-10-03 | Outpatient (CLI) | payer MEDICARE, OTHER ==
[2020-10-03 15:07] LABS: HEMATOCRIT 22.5 % (42.0-52.0); HEMOGLOBIN 7.5 g/dl (13.5-17.5); MEAN CORPUSCULAR HEMOGLOBIN 31.9 pg (27.0-33.0); MEAN CORPUSCULAR HGB CONC 33.3 g/dl (32.0-36.5); MEAN CORPUSCULAR VOLUME 95.7 fl (80.0-96.0); RED BLOOD COUNT 2.35 10^6/uL (4.30-6.10); WHITE BLOOD COUNT 1.3 10^3/uL (4.0-10.0)
[2020-10-03 15:33] LABS: PLATELET COUNT, AUTOMATED 11 10^3/uL (150-450)
== END ==
LOC: M LAB 14:15
PROVIDERS: ATTEND Internal Medicine Hematology & Oncology
DX: H91.90 Unspecified hearing loss, unspecified ear (principal); Z79.899 Other long term (current) drug therapy

== ENCOUNTER → 2020-10-04 | Outpatient (CLI) | payer MEDICARE, OTHER ==
[~2020-10-04] MED LIST changes: +ACYC1TAB PO; -ACYC400T PO
== END ==
LOC: M LAB 13:37
PROVIDERS: ATTEND Internal Medicine Hematology & Oncology
DX: C92.00 Acute myeloblastic leukemia, not having achieved remission (principal)

== ENCOUNTER 2020-10-05 10:32 | Outpatient (CLI) | payer MEDICARE, OTHER ==
[~2020-10-05] VITALS: Ht 185.4 cm; Wt 98.1 kg
[~2020-10-05 10:32] MED LIST changes: +ACETAMINOPHEN TAB 650MG DOSE (2X325MG) PO SCH; -ACYC1TAB PO; +ACYC400T PO; +diphenhydrAMINE 25MG CAP PO SCH
[2020-10-05 10:57] VITALS: BP 116/54
[2020-10-05 11:10] VITALS: BP 101/55
[2020-10-05 12:44] VITALS: BP 109/54
[2020-10-05 13:00] VITALS: BP 108/83
[2020-10-05 14:19] VITALS: BP 121/59
== END 2020-10-05 14:35 | disposition home or self-care (01) ==
LOC: M INFU 10:32
PROVIDERS: ATTEND Internal Medicine Hematology & Oncology
DX: C92.00 Acute myeloblastic leukemia, not having achieved remission (principal)
CPT/HCPCS: 36430; P9040

== ENCOUNTER → 2020-10-08 | Outpatient (CLI) | payer MEDICARE, OTHER ==
[~2020-10-08] MED LIST changes: -ACETAMINOPHEN TAB 650MG DOSE (2X325MG) PO SCH; -diphenhydrAMINE 25MG CAP PO SCH
[2020-10-08 11:13] LABS: HEMATOCRIT 27.7 % (42.0-52.0); HEMOGLOBIN 9.4 g/dl (13.5-17.5); MEAN CORPUSCULAR HEMOGLOBIN 31.6 pg (27.0-33.0); MEAN CORPUSCULAR HGB CONC 33.9 g/dl (32.0-36.5); MEAN CORPUSCULAR VOLUME 93.3 fl (80.0-96.0); RED BLOOD COUNT 2.97 10^6/uL (4.30-6.10)
[2020-10-08 11:15] LABS: PLATELET COUNT, AUTOMATED 6 10^3/uL (150-450); WHITE BLOOD COUNT 0.8 10^3/uL (4.0-10.0)
== END ==
LOC: M LAB 09:51
PROVIDERS: ATTEND Internal Medicine Hematology & Oncology
DX: H91.93 Unspecified hearing loss, bilateral (principal); Z79.899 Other long term (current) drug therapy

== ENCOUNTER 2020-10-09 11:58 | Outpatient (CLI) | payer MEDICARE, OTHER ==
[~2020-10-09] VITALS: Ht 185.4 cm; Wt 98.1 kg
[~2020-10-09 11:58] MED LIST changes: +ACETAMINOPHEN TAB 650MG DOSE (2X325MG) PO SCH; +diphenhydrAMINE 25MG CAP PO SCH
[2020-10-09 13:20] VITALS: BP 104/58
[2020-10-09 14:20] VITALS: BP 111/54
[2020-10-09 14:50] VITALS: BP 105/55
[2020-10-09 14:55] VITALS: BP 105/55
== END 2020-10-09 14:55 | disposition home or self-care (01) ==
LOC: M INFU 11:58
PROVIDERS: ATTEND Internal Medicine Hematology & Oncology
DX: C92.00 Acute myeloblastic leukemia, not having achieved remission (principal)
CPT/HCPCS: 36430; P9034

== ENCOUNTER → 2020-10-10 | Outpatient (CLI) | payer MEDICARE, OTHER ==
[~2020-10-10] MED LIST changes: -ACETAMINOPHEN TAB 650MG DOSE (2X325MG) PO SCH; -diphenhydrAMINE 25MG CAP PO SCH
[2020-10-10 11:49] LABS: HEMATOCRIT 25.7 % (42.0-52.0); HEMOGLOBIN 8.6 g/dl (13.5-17.5); MEAN CORPUSCULAR HEMOGLOBIN 31.5 pg (27.0-33.0); MEAN CORPUSCULAR HGB CONC 33.5 g/dl (32.0-36.5); MEAN CORPUSCULAR VOLUME 94.1 fl (80.0-96.0); RED BLOOD COUNT 2.73 10^6/uL (4.30-6.10); WHITE BLOOD COUNT 0.7 10^3/uL (4.0-10.0)
[2020-10-10 11:50] LABS: PLATELET COUNT, AUTOMATED 3 10^3/uL (150-450)
== END ==
LOC: M LAB 11:03
PROVIDERS: ATTEND Internal Medicine Hematology & Oncology
DX: H91.90 Unspecified hearing loss, unspecified ear (principal); Z79.899 Other long term (current) drug therapy

== ENCOUNTER 2020-10-11 14:04 | Outpatient (CLI) | payer MEDICARE, OTHER ==
[~2020-10-11 14:04] MED LIST changes: +ACETAMINOPHEN TAB 650MG DOSE (2X325MG) PO SCH; +diphenhydrAMINE 25MG CAP PO SCH
[2020-10-11 14:42] VITALS: BP 107/80
[2020-10-11 15:00] VITALS: BP 107/52
[2020-10-11 16:17] VITALS: BP 110/53
== END 2020-10-11 16:30 | disposition home or self-care (01) ==
LOC: M INFU 14:04
PROVIDERS: ATTEND Internal Medicine Hematology & Oncology
DX: C92.00 Acute myeloblastic leukemia, not having achieved remission (principal)
CPT/HCPCS: 36430; P9034

== ENCOUNTER → 2020-10-12 | Outpatient (CLI) | payer MEDICARE, OTHER ==
[~2020-10-12] MED LIST changes: -ACETAMINOPHEN TAB 650MG DOSE (2X325MG) PO SCH; +ACYC1TAB PO; -ACYC400T PO; -diphenhydrAMINE 25MG CAP PO SCH
[2020-10-12 11:54] LABS: HEMATOCRIT 26.2 % (42.0-52.0); HEMOGLOBIN 8.8 g/dl (13.5-17.5); MEAN CORPUSCULAR HEMOGLOBIN 31.9 pg (27.0-33.0); MEAN CORPUSCULAR HGB CONC 33.6 g/dl (32.0-36.5); MEAN CORPUSCULAR VOLUME 94.9 fl (80.0-96.0); RED BLOOD COUNT 2.76 10^6/uL (4.30-6.10)
[2020-10-12 12:03] LABS: WHITE BLOOD COUNT 0.8 10^3/uL (4.0-10.0)
[2020-10-12 12:04] LABS: PLATELET COUNT, AUTOMATED 7 10^3/uL (150-450)
[2020-10-12 12:12] LABS: ALBUMIN 3.7 GM/DL (3.2-5.2); ALT/SGPT 25 U/L (12-78); BILIRUBIN,TOTAL 0.9 MG/DL (0.2-1.0); BLOOD UREA NITROGEN 13 MG/DL (7-18); CALCIUM LEVEL 9.4 MG/DL (8.8-10.2); CARBON DIOXIDE LEVEL 22 MEQ/L (21-32); CHLORIDE LEVEL 108 MEQ/L (98-107); CREATININE FOR GFR 0.75 MG/DL (0.70-1.30); GLOMERULAR FILTRATION RATE > 60.0 (>42); GLUCOSE, FASTING 120 MG/DL (70-100); POTASSIUM SERUM 4.4 MEQ/L (3.5-5.1); SODIUM LEVEL 135 MEQ/L (136-145); TOTAL PROTEIN 7.1 GM/DL (6.4-8.2)
== END ==
LOC: M LAB 10:53
PROVIDERS: ATTEND Internal Medicine Hematology & Oncology
DX: C92.00 Acute myeloblastic leukemia, not having achieved remission (principal); H91.90 Unspecified hearing loss, unspecified ear

== ENCOUNTER → 2020-10-12 | Outpatient (CLI) | payer MEDICARE, OTHER ==
[2020-10-12] VITALS (7 sets, daily range): BP systolic 107–116; BP diastolic 52–57
[~2020-10-12] VITALS: Ht 185.4 cm; Wt 98.1 kg
== END ==
LOC: M INFU 14:07
PROVIDERS: ATTEND Internal Medicine Hematology & Oncology
DX: C92.00 Acute myeloblastic leukemia, not having achieved remission (principal); H91.90 Unspecified hearing loss, unspecified ear
CPT/HCPCS: 36415; 36430; 80053; 85027; 85049; 85055; P9034

== ENCOUNTER → 2020-10-15 | Outpatient (CLI) | payer MEDICARE, OTHER ==
[2020-10-15 12:36] LABS: HEMATOCRIT 25.5 % (42.0-52.0); HEMOGLOBIN 8.3 g/dl (13.5-17.5); MEAN CORPUSCULAR HEMOGLOBIN 31.1 pg (27.0-33.0); MEAN CORPUSCULAR HGB CONC 32.5 g/dl (32.0-36.5); MEAN CORPUSCULAR VOLUME 95.5 fl (80.0-96.0); RED BLOOD COUNT 2.67 10^6/uL (4.30-6.10)
[2020-10-15 12:43] LABS: PLATELET COUNT, AUTOMATED 23 10^3/uL (150-450); WHITE BLOOD COUNT 0.6 10^3/uL (4.0-10.0)
== END ==
LOC: M LAB 11:14
PROVIDERS: ATTEND Internal Medicine Hematology & Oncology
DX: H91.90 Unspecified hearing loss, unspecified ear (principal)

== ENCOUNTER → 2020-10-17 | Outpatient (CLI) | payer MEDICARE, OTHER ==
[2020-10-17 12:17] LABS: HEMATOCRIT 23.3 % (42.0-52.0); HEMOGLOBIN 7.8 g/dl (13.5-17.5); MEAN CORPUSCULAR HEMOGLOBIN 32.1 pg (27.0-33.0); MEAN CORPUSCULAR HGB CONC 33.5 g/dl (32.0-36.5); MEAN CORPUSCULAR VOLUME 95.9 fl (80.0-96.0); RED BLOOD COUNT 2.43 10^6/uL (4.30-6.10)
[2020-10-17 12:27] LABS: PLATELET COUNT, AUTOMATED 26 10^3/uL (150-450); WHITE BLOOD COUNT 0.5 10^3/uL (4.0-10.0)
== END ==
LOC: M LAB 11:14
PROVIDERS: ATTEND Internal Medicine Hematology & Oncology
DX: H91.90 Unspecified hearing loss, unspecified ear (principal); D50.9 Iron deficiency anemia, unspecified

== ENCOUNTER → 2020-10-19 | Outpatient (CLI) | payer MEDICARE, OTHER ==
[2020-10-19 11:22] LABS: HEMATOCRIT 24.7 % (42.0-52.0); HEMOGLOBIN 8.2 g/dl (13.5-17.5); MEAN CORPUSCULAR HGB CONC 33.2 g/dl (32.0-36.5); MEAN CORPUSCULAR VOLUME 96.5 fl (80.0-96.0); RED BLOOD COUNT 2.56 10^6/uL (4.30-6.10)
[2020-10-19 11:30] LABS: WHITE BLOOD COUNT 0.6 10^3/uL (4.0-10.0)
[2020-10-19 11:31] LABS: PLATELET COUNT, AUTOMATED 28 10^3/uL (150-450)
== END ==
LOC: M LAB 10:22
PROVIDERS: ATTEND Internal Medicine Hematology & Oncology
DX: H91.90 Unspecified hearing loss, unspecified ear (principal)

== ENCOUNTER 2020-10-23 07:26 | Outpatient (CLI) | payer MEDICARE, OTHER ==
[~2020-10-23] VITALS: Ht 185.4 cm; Wt 85.5 kg
[2020-10-23 07:20] VITALS: BP 118/54
[~2020-10-23 07:26] MED LIST changes: +ACETAMINOPHEN TAB 650MG DOSE (2X325MG) PO SCH; +diphenhydrAMINE 25MG CAP PO SCH
[2020-10-23 12:48] VITALS: BP 121/58
[2020-10-23 14:15] VITALS: BP 103/56
[2020-10-23 15:24] VITALS: BP 115/56
[2020-10-23 16:21] VITALS: BP 102/50
[2020-10-23 17:10] VITALS: BP 108/56
== END 2020-10-23 17:10 | disposition home or self-care (01) ==
LOC: M INFU 07:26
PROVIDERS: ATTEND Physician Assistant
DX: C92.00 Acute myeloblastic leukemia, not having achieved remission (principal); Z88.1 Allergy status to other antibiotic agents
CPT/HCPCS: 36430; 36592; 86850; 86900; 86901; 86920; P9040

== ENCOUNTER → 2020-10-24 | Outpatient (CLI) | payer MEDICARE, OTHER ==
[~2020-10-24] MED LIST changes: -ACETAMINOPHEN TAB 650MG DOSE (2X325MG) PO SCH; -diphenhydrAMINE 25MG CAP PO SCH
[2020-10-24 12:08] LABS: HEMATOCRIT 27.3 % (42.0-52.0); HEMOGLOBIN 9.1 g/dl (13.5-17.5); MEAN CORPUSCULAR HEMOGLOBIN 31.1 pg (27.0-33.0); MEAN CORPUSCULAR HGB CONC 33.3 g/dl (32.0-36.5); MEAN CORPUSCULAR VOLUME 93.2 fl (80.0-96.0); RED BLOOD COUNT 2.93 10^6/uL (4.30-6.10); WHITE BLOOD COUNT 1.4 10^3/uL (4.0-10.0)
[2020-10-24 12:15] LABS: PLATELET COUNT, AUTOMATED 17 10^3/uL (150-450)
== END ==
LOC: M LAB 11:37
PROVIDERS: ATTEND Internal Medicine Hematology & Oncology
DX: H91.90 Unspecified hearing loss, unspecified ear (principal)

== ENCOUNTER → 2020-10-26 | Outpatient (CLI) | payer MEDICARE, OTHER ==
[2020-10-26 11:37] LABS: HEMATOCRIT 27.4 % (42.0-52.0); MEAN CORPUSCULAR HGB CONC 32.8 g/dl (32.0-36.5); MEAN CORPUSCULAR VOLUME 94.5 fl (80.0-96.0); WHITE BLOOD COUNT 1.6 10^3/uL (4.0-10.0)
[2020-10-26 11:45] LABS: PLATELET COUNT, AUTOMATED 12 10^3/uL (150-450)
== END ==
LOC: M LAB 10:59
PROVIDERS: ATTEND Internal Medicine Hematology & Oncology
DX: H91.90 Unspecified hearing loss, unspecified ear (principal); Z79.899 Other long term (current) drug therapy

== ENCOUNTER 2020-10-29 15:10 | Outpatient (CLI) | payer MEDICARE, OTHER ==
[~2020-10-29] VITALS: Ht 185.4 cm; Wt 85.4 kg
[~2020-10-29 15:10] MED LIST changes: +ACETAMINOPHEN TAB 650MG DOSE (2X325MG) PO SCH; +diphenhydrAMINE 25MG CAP PO SCH
[2020-10-29 15:15] VITALS: BP 131/65
[2020-10-29 16:10] VITALS: BP 112/55
[2020-10-29 17:00] VITALS: BP 108/58
[2020-10-29 17:45] VITALS: BP 103/51
== END 2020-10-29 17:45 | disposition home or self-care (01) ==
LOC: M INFU 15:10
PROVIDERS: ATTEND Internal Medicine Hematology & Oncology
DX: C92.00 Acute myeloblastic leukemia, not having achieved remission (principal); Z88.1 Allergy status to other antibiotic agents

== ENCOUNTER → 2020-10-29 | Outpatient (CLI) | payer MEDICARE, OTHER ==
[2020-10-29 12:07] LABS: HEMATOCRIT 28.3 % (42.0-52.0); HEMOGLOBIN 9.2 g/dl (13.5-17.5); MEAN CORPUSCULAR HGB CONC 32.5 g/dl (32.0-36.5); MEAN CORPUSCULAR VOLUME 95.3 fl (80.0-96.0); RED BLOOD COUNT 2.97 10^6/uL (4.30-6.10); WHITE BLOOD COUNT 2.2 10^3/uL (4.0-10.0)
[2020-10-29 13:01] LABS: PLATELET COUNT, AUTOMATED 8 10^3/uL (150-450)
== END ==
LOC: M LAB 11:17
PROVIDERS: ATTEND Internal Medicine Hematology & Oncology
DX: H91.90 Unspecified hearing loss, unspecified ear (principal); C92.00 Acute myeloblastic leukemia, not having achieved remission; Z88.1 Allergy status to other antibiotic agents
CPT/HCPCS: 36415; 36430; 85027; 85049; 85055; P9036

== ENCOUNTER → 2020-10-31 | Outpatient (CLI) | payer MEDICARE, OTHER ==
[~2020-10-31] MED LIST changes: -ACETAMINOPHEN TAB 650MG DOSE (2X325MG) PO SCH; -diphenhydrAMINE 25MG CAP PO SCH
[2020-10-31 11:10] LABS: HEMATOCRIT 26.3 % (42.0-52.0); HEMOGLOBIN 8.7 g/dl (13.5-17.5); MEAN CORPUSCULAR HEMOGLOBIN 31.5 pg (27.0-33.0); MEAN CORPUSCULAR HGB CONC 33.1 g/dl (32.0-36.5); MEAN CORPUSCULAR VOLUME 95.3 fl (80.0-96.0); RED BLOOD COUNT 2.76 10^6/uL (4.30-6.10)
[2020-10-31 11:16] LABS: PLATELET COUNT, AUTOMATED 9 10^3/uL (150-450)
== END ==
LOC: M LAB 10:14
PROVIDERS: ATTEND Internal Medicine Hematology & Oncology
DX: H91.90 Unspecified hearing loss, unspecified ear (principal)

== ENCOUNTER → 2020-11-02 | Outpatient (CLI) | payer MEDICARE, OTHER ==
[2020-11-02 12:17] LABS: HEMATOCRIT 27.3 % (42.0-52.0); HEMOGLOBIN 8.8 g/dl (13.5-17.5); MEAN CORPUSCULAR HEMOGLOBIN 31.1 pg (27.0-33.0); MEAN CORPUSCULAR HGB CONC 32.2 g/dl (32.0-36.5); MEAN CORPUSCULAR VOLUME 96.5 fl (80.0-96.0); RED BLOOD COUNT 2.83 10^6/uL (4.30-6.10); WHITE BLOOD COUNT 2.1 10^3/uL (4.0-10.0)
[2020-11-02 12:20] LABS: PLATELET COUNT, AUTOMATED 8 10^3/uL (150-450)
== END ==
LOC: M LAB 11:26
PROVIDERS: ATTEND Internal Medicine Hematology & Oncology
DX: H91.90 Unspecified hearing loss, unspecified ear (principal)

== ENCOUNTER 2020-11-06 15:12 | Outpatient (CLI) | payer MEDICARE, OTHER ==
[~2020-11-06] VITALS: Ht 185.4 cm; Wt 85.1 kg
[~2020-11-06 15:12] MED LIST changes: +ACETAMINOPHEN TAB 650MG DOSE (2X325MG) PO SCH; +diphenhydrAMINE 25MG CAP PO SCH
[2020-11-06 16:10] VITALS: BP 96/46
[2020-11-06 16:25] VITALS: BP 105/50
[2020-11-06 17:26] VITALS: BP 102/59
== END 2020-11-06 17:35 | disposition home or self-care (01) ==
LOC: M INFU 15:12
PROVIDERS: ATTEND Internal Medicine Hematology & Oncology
DX: C92.00 Acute myeloblastic leukemia, not having achieved remission (principal); Z88.1 Allergy status to other antibiotic agents
CPT/HCPCS: 36430; P9036

== ENCOUNTER → 2020-11-07 | Outpatient (CLI) | payer MEDICARE, OTHER ==
[~2020-11-07] MED LIST changes: -ACETAMINOPHEN TAB 650MG DOSE (2X325MG) PO SCH; -diphenhydrAMINE 25MG CAP PO SCH
[2020-11-07 11:18] LABS: HEMATOCRIT 25.3 % (42.0-52.0); HEMOGLOBIN 8.2 g/dl (13.5-17.5); MEAN CORPUSCULAR HEMOGLOBIN 31.7 pg (27.0-33.0); MEAN CORPUSCULAR HGB CONC 32.4 g/dl (32.0-36.5); MEAN CORPUSCULAR VOLUME 97.7 fl (80.0-96.0); RED BLOOD COUNT 2.59 10^6/uL (4.30-6.10); WHITE BLOOD COUNT 1.8 10^3/uL (4.0-10.0)
[2020-11-07 11:20] LABS: PLATELET COUNT, AUTOMATED 28 10^3/uL (150-450)
== END ==
LOC: M LAB 10:03
PROVIDERS: ATTEND Internal Medicine Hematology & Oncology
DX: H91.90 Unspecified hearing loss, unspecified ear (principal); Z79.899 Other long term (current) drug therapy

== ENCOUNTER → 2020-11-09 | Outpatient (CLI) | payer MEDICARE, OTHER ==
[2020-11-09 13:20] LABS: MEAN CORPUSCULAR HEMOGLOBIN 31.3 pg (27.0-33.0); MEAN CORPUSCULAR VOLUME 97.7 fl (80.0-96.0); RED BLOOD COUNT 2.56 10^6/uL (4.30-6.10); WHITE BLOOD COUNT 2.2 10^3/uL (4.0-10.0)
[2020-11-09 13:23] LABS: PLATELET COUNT, AUTOMATED 12 10^3/uL (150-450)
== END ==
LOC: M LAB 11:07
PROVIDERS: ATTEND Internal Medicine Hematology & Oncology
DX: H91.90 Unspecified hearing loss, unspecified ear (principal); Z79.899 Other long term (current) drug therapy

== ENCOUNTER → 2020-11-12 | Outpatient (CLI) | payer MEDICARE, OTHER ==
[2020-11-12 13:18] LABS: HEMATOCRIT 23.4 % (42.0-52.0); HEMOGLOBIN 7.7 g/dl (13.5-17.5); MEAN CORPUSCULAR HEMOGLOBIN 31.8 pg (27.0-33.0); MEAN CORPUSCULAR HGB CONC 32.9 g/dl (32.0-36.5); MEAN CORPUSCULAR VOLUME 96.7 fl (80.0-96.0); RED BLOOD COUNT 2.42 10^6/uL (4.30-6.10); WHITE BLOOD COUNT 2.1 10^3/uL (4.0-10.0)
[2020-11-12 13:19] LABS: PLATELET COUNT, AUTOMATED 10 10^3/uL (150-450)
== END ==
LOC: M LAB 11:29
PROVIDERS: ATTEND Internal Medicine Hematology & Oncology
DX: H91.90 Unspecified hearing loss, unspecified ear (principal); Z79.899 Other long term (current) drug therapy

== ENCOUNTER → 2020-11-14 | Outpatient (CLI) | payer MEDICARE, OTHER ==
[2020-11-14 12:06] LABS: HEMATOCRIT 23.7 % (42.0-52.0); HEMOGLOBIN 7.7 g/dl (13.5-17.5); MEAN CORPUSCULAR HEMOGLOBIN 31.8 pg (27.0-33.0); MEAN CORPUSCULAR HGB CONC 32.5 g/dl (32.0-36.5); MEAN CORPUSCULAR VOLUME 97.9 fl (80.0-96.0); RED BLOOD COUNT 2.42 10^6/uL (4.30-6.10)
[2020-11-14 12:08] LABS: PLATELET COUNT, AUTOMATED 10 10^3/uL (150-450)
== END ==
LOC: M LAB 11:18
PROVIDERS: ATTEND Internal Medicine Hematology & Oncology
DX: H91.90 Unspecified hearing loss, unspecified ear (principal)

== ENCOUNTER → 2020-11-16 | Outpatient (CLI) | payer MEDICARE, OTHER ==
[2020-11-16 13:51] LABS: HEMATOCRIT 23.9 % (42.0-52.0); HEMOGLOBIN 7.8 g/dl (13.5-17.5); MEAN CORPUSCULAR HEMOGLOBIN 32.2 pg (27.0-33.0); MEAN CORPUSCULAR HGB CONC 32.6 g/dl (32.0-36.5); MEAN CORPUSCULAR VOLUME 98.8 fl (80.0-96.0); RED BLOOD COUNT 2.42 10^6/uL (4.30-6.10); WHITE BLOOD COUNT 2.2 10^3/uL (4.0-10.0)
[2020-11-16 13:52] LABS: PLATELET COUNT, AUTOMATED 10 10^3/uL (150-450)
== END ==
LOC: M LAB 11:48
PROVIDERS: ATTEND Internal Medicine Hematology & Oncology
DX: H91.90 Unspecified hearing loss, unspecified ear (principal); Z79.899 Other long term (current) drug therapy

== ENCOUNTER → 2020-11-19 | Outpatient (CLI) | payer MEDICARE, OTHER | LOC: M LAB 17:25 | PROVIDERS: ATTEND Internal Medicine Hematology & Oncology | DX: H91.90 Unspecified hearing loss, unspecified ear (principal) ==

== ENCOUNTER 2020-11-20 15:19 | Outpatient (CLI) | payer MEDICARE, OTHER ==
[~2020-11-20] VITALS: Ht 185.4 cm; Wt 85.1 kg
[~2020-11-20 15:19] MED LIST changes: +ACETAMINOPHEN TAB 650MG DOSE (2X325MG) PO SCH; +diphenhydrAMINE 25MG CAP PO SCH
[2020-11-20 15:41] VITALS: BP 136/63
[2020-11-20 15:55] VITALS: BP 118/61
[2020-11-20 17:05] VITALS: BP 107/59
== END 2020-11-20 17:15 | disposition home or self-care (01) ==
LOC: M INFU 15:19
PROVIDERS: ATTEND Internal Medicine Hematology & Oncology
DX: C92.00 Acute myeloblastic leukemia, not having achieved remission (principal); Z88.1 Allergy status to other antibiotic agents
CPT/HCPCS: 36415; 36430; 86850; 86900; 86901; 86920; P9040

== ENCOUNTER → 2020-11-21 | Outpatient (CLI) | payer MEDICARE, OTHER ==
[~2020-11-21] MED LIST changes: -ACETAMINOPHEN TAB 650MG DOSE (2X325MG) PO SCH; -diphenhydrAMINE 25MG CAP PO SCH
[2020-11-21 14:45] LABS: HEMATOCRIT 25.8 % (42.0-52.0); HEMOGLOBIN 8.5 g/dl (13.5-17.5); MEAN CORPUSCULAR HEMOGLOBIN 32.7 pg (27.0-33.0); MEAN CORPUSCULAR HGB CONC 32.9 g/dl (32.0-36.5); MEAN CORPUSCULAR VOLUME 99.2 fl (80.0-96.0); WHITE BLOOD COUNT 2.3 10^3/uL (4.0-10.0)
[2020-11-21 14:46] LABS: PLATELET COUNT, AUTOMATED 15 10^3/uL (150-450)
== END ==
LOC: M LAB 13:50
PROVIDERS: ATTEND Internal Medicine Hematology & Oncology
DX: H91.90 Unspecified hearing loss, unspecified ear (principal); D64.9 Anemia, unspecified

== ENCOUNTER → 2020-11-23 | Outpatient (CLI) | payer MEDICARE, OTHER ==
[2020-11-23 12:19] LABS: HEMOGLOBIN 8.2 g/dl (13.5-17.5); MEAN CORPUSCULAR HEMOGLOBIN 32.9 pg (27.0-33.0); MEAN CORPUSCULAR HGB CONC 32.8 g/dl (32.0-36.5); MEAN CORPUSCULAR VOLUME 100.4 fl (80.0-96.0); RED BLOOD COUNT 2.49 10^6/uL (4.30-6.10); WHITE BLOOD COUNT 2.4 10^3/uL (4.0-10.0)
[2020-11-23 12:21] LABS: PLATELET COUNT, AUTOMATED 15 10^3/uL (150-450)
== END ==
LOC: M LAB 11:42
PROVIDERS: ATTEND Internal Medicine Hematology & Oncology
DX: H91.90 Unspecified hearing loss, unspecified ear (principal); Z79.899 Other long term (current) drug therapy

== ENCOUNTER → 2020-11-26 | Outpatient (CLI) | payer MEDICARE, OTHER ==
[2020-11-26 16:22] LABS: HEMATOCRIT 25.4 % (42.0-52.0); HEMOGLOBIN 8.2 g/dl (13.5-17.5); MEAN CORPUSCULAR HEMOGLOBIN 33.1 pg (27.0-33.0); MEAN CORPUSCULAR HGB CONC 32.3 g/dl (32.0-36.5); MEAN CORPUSCULAR VOLUME 102.4 fl (80.0-96.0); RED BLOOD COUNT 2.48 10^6/uL (4.30-6.10); WHITE BLOOD COUNT 2.6 10^3/uL (4.0-10.0)
[2020-11-26 16:24] LABS: PLATELET COUNT, AUTOMATED 17 10^3/uL (150-450)
== END ==
LOC: M LAB 14:44
PROVIDERS: ATTEND Internal Medicine Hematology & Oncology
DX: H91.90 Unspecified hearing loss, unspecified ear (principal); Z79.899 Other long term (current) drug therapy

== ENCOUNTER → 2020-11-28 | Outpatient (CLI) | payer MEDICARE, OTHER ==
[2020-11-28 11:31] LABS: HEMATOCRIT 25.2 % (42.0-52.0); HEMOGLOBIN 8.1 g/dl (13.5-17.5); MEAN CORPUSCULAR HEMOGLOBIN 32.9 pg (27.0-33.0); MEAN CORPUSCULAR HGB CONC 32.1 g/dl (32.0-36.5); MEAN CORPUSCULAR VOLUME 102.4 fl (80.0-96.0); RED BLOOD COUNT 2.46 10^6/uL (4.30-6.10); WHITE BLOOD COUNT 2.4 10^3/uL (4.0-10.0)
[2020-11-28 11:33] LABS: PLATELET COUNT, AUTOMATED 18 10^3/uL (150-450)
== END ==
LOC: M LAB 11:05
PROVIDERS: ATTEND Internal Medicine Hematology & Oncology
DX: H91.90 Unspecified hearing loss, unspecified ear (principal); Z79.899 Other long term (current) drug therapy

== ENCOUNTER → 2020-11-30 | Outpatient (CLI) | payer MEDICARE, OTHER ==
[2020-11-30 14:17] LABS: HEMATOCRIT 26.6 % (42.0-52.0); HEMOGLOBIN 8.5 g/dl (13.5-17.5); MEAN CORPUSCULAR HEMOGLOBIN 33.1 pg (27.0-33.0); MEAN CORPUSCULAR VOLUME 103.5 fl (80.0-96.0); RED BLOOD COUNT 2.57 10^6/uL (4.30-6.10)
[2020-11-30 14:20] LABS: PLATELET COUNT, AUTOMATED 19 10^3/uL (150-450)
== END ==
LOC: M LAB 13:47
PROVIDERS: ATTEND Internal Medicine Hematology & Oncology
DX: H91.90 Unspecified hearing loss, unspecified ear (principal)

== ENCOUNTER → 2020-12-10 | Outpatient (CLI) | payer MEDICARE, OTHER ==
[2020-12-10 15:38] LABS: HEMATOCRIT 26.1 % (42.0-52.0); HEMOGLOBIN 8.3 g/dl (13.5-17.5); MEAN CORPUSCULAR HEMOGLOBIN 34.2 pg (27.0-33.0); MEAN CORPUSCULAR HGB CONC 31.8 g/dl (32.0-36.5); MEAN CORPUSCULAR VOLUME 107.4 fl (80.0-96.0); RED BLOOD COUNT 2.43 10^6/uL (4.30-6.10); WHITE BLOOD COUNT 4.1 10^3/uL (4.0-10.0)
[2020-12-10 15:40] LABS: PLATELET COUNT, AUTOMATED 22 10^3/uL (150-450)
[2020-12-10 20:07] LABS: ATYPICAL LYMPH 6 % (0-5); BASOPHILS 2 % (0-1); EOSINOPHILS 1 % (0-3); LYMPHOCYTES 27 % (16-44); METAMYELOCYTES 1 % (0-0); MONOCYTES 24 % (0-5); MYELOCYTES 3 % (0-0); NEUTROPHILS 35 % (28-66); PLATELET ESTIMATE MARKED DECREASE (NORMAL); PROMYELOCYTES 1 % (0-0)
[2020-12-10 20:08] LABS: ANISOCYTOSIS 3+; POIKILOCYTOSIS 2+
[2020-12-10 20:10] LABS: HYPOCHROMASIA 1+; POLYCHROMASIA 1+; TEAR DROP CELLS 1+
== END ==
LOC: M LAB 15:07
PROVIDERS: ATTEND Internal Medicine Hematology & Oncology
DX: H91.90 Unspecified hearing loss, unspecified ear (principal); D50.9 Iron deficiency anemia, unspecified

== ENCOUNTER → 2020-12-12 | Outpatient (CLI) | payer MEDICARE, OTHER ==
[2020-12-12 15:04] LABS: HEMATOCRIT 25.7 % (42.0-52.0); HEMOGLOBIN 8.3 g/dl (13.5-17.5); MEAN CORPUSCULAR HEMOGLOBIN 34.9 pg (27.0-33.0); MEAN CORPUSCULAR HGB CONC 32.3 g/dl (32.0-36.5); PLATELET COUNT, AUTOMATED 22 10^3/uL (150-450); RED BLOOD COUNT 2.38 10^6/uL (4.30-6.10); WHITE BLOOD COUNT 3.4 10^3/uL (4.0-10.0)
== END ==
LOC: M LAB 14:19
PROVIDERS: ATTEND Internal Medicine Hematology & Oncology
DX: H91.90 Unspecified hearing loss, unspecified ear (principal); D50.9 Iron deficiency anemia, unspecified

== ENCOUNTER → 2020-12-17 | Outpatient (CLI) | payer MEDICARE, OTHER ==
[2020-12-17 13:59] LABS: HEMATOCRIT 24.2 % (42.0-52.0); HEMOGLOBIN 7.7 g/dl (13.5-17.5); MEAN CORPUSCULAR HGB CONC 31.8 g/dl (32.0-36.5)
[2020-12-17 14:05] LABS: PLATELET COUNT, AUTOMATED 16 10^3/uL (150-450)
== END ==
LOC: M LAB 13:01
PROVIDERS: ATTEND Internal Medicine Hematology & Oncology
DX: H91.90 Unspecified hearing loss, unspecified ear (principal)

== ENCOUNTER → 2020-12-19 | Outpatient (CLI) | payer MEDICARE, OTHER ==
[2020-12-19 17:57] LABS: HEMATOCRIT 24.6 % (42.0-52.0); HEMOGLOBIN 7.8 g/dl (13.5-17.5); MEAN CORPUSCULAR HEMOGLOBIN 35.9 pg (27.0-33.0); MEAN CORPUSCULAR HGB CONC 31.7 g/dl (32.0-36.5); MEAN CORPUSCULAR VOLUME 113.4 fl (80.0-96.0); RED BLOOD COUNT 2.17 10^6/uL (4.30-6.10); WHITE BLOOD COUNT 3.5 10^3/uL (4.0-10.0)
[2020-12-19 18:25] LABS: PLATELET COUNT, AUTOMATED 17 10^3/uL (150-450)
== END ==
LOC: M LAB 16:56
PROVIDERS: ATTEND Internal Medicine Hematology & Oncology
DX: H91.90 Unspecified hearing loss, unspecified ear (principal)

== ENCOUNTER → 2020-12-21 | Outpatient (CLI) | payer MEDICARE, OTHER ==
[2020-12-21 14:02] LABS: HEMATOCRIT 24.1 % (42.0-52.0); HEMOGLOBIN 7.7 g/dl (13.5-17.5); MEAN CORPUSCULAR HEMOGLOBIN 35.8 pg (27.0-33.0); MEAN CORPUSCULAR VOLUME 112.1 fl (80.0-96.0); RED BLOOD COUNT 2.15 10^6/uL (4.30-6.10); WHITE BLOOD COUNT 3.2 10^3/uL (4.0-10.0)
[2020-12-21 14:04] LABS: PLATELET COUNT, AUTOMATED 15 10^3/uL (150-450)
== END ==
LOC: M LAB 12:02
PROVIDERS: ATTEND Internal Medicine Hematology & Oncology
DX: H91.90 Unspecified hearing loss, unspecified ear (principal); Z79.899 Other long term (current) drug therapy

== ENCOUNTER → 2020-12-24 | Outpatient (CLI) | payer MEDICARE, OTHER | LOC: M LAB 16:37 | PROVIDERS: ATTEND Internal Medicine Hematology & Oncology | DX: C92.00 Acute myeloblastic leukemia, not having achieved remission (principal) ==

== ENCOUNTER → 2020-12-25 | Outpatient (CLI) | payer MEDICARE, OTHER ==
[~2020-12-25] MED LIST changes: +ACETAMINOPHEN TAB 650MG DOSE (2X325MG) PO SCH; +diphenhydrAMINE 25MG CAP PO SCH
== END ==
LOC: M INFU 09:01
PROVIDERS: ATTEND Internal Medicine Hematology & Oncology
DX: C92.00 Acute myeloblastic leukemia, not having achieved remission (principal)

== ENCOUNTER 2020-12-26 10:00 | Outpatient (CLI) | payer MEDICARE, OTHER ==
[~2020-12-26] VITALS: Ht 182.9 cm; Wt 90.9 kg
[2020-12-26 10:05] VITALS: BP 112/51
[2020-12-26 10:30] VITALS: BP 112/51
[2020-12-26 10:45] VITALS: BP 124/71
[2020-12-26 11:45] VITALS: BP 98/46
[2020-12-26 12:16] VITALS: BP 104/72
== END 2020-12-26 12:15 | disposition home or self-care (01) ==
LOC: M INFU 10:00
PROVIDERS: ATTEND Internal Medicine Hematology & Oncology
DX: C92.00 Acute myeloblastic leukemia, not having achieved remission (principal); Z88.1 Allergy status to other antibiotic agents
CPT/HCPCS: 36430; 86850; 86900; 86901; 86920; P9016

== ENCOUNTER 2021-01-01 10:41 | Outpatient (CLI) | payer MEDICARE, OTHER ==
[~2021-01-01] VITALS: Ht 182.9 cm; Wt 90.9 kg
[2021-01-01 10:45] VITALS: BP 115/56
[2021-01-01 11:20] VITALS: BP 103/51
[2021-01-01 13:09] VITALS: BP 109/51
[2021-01-01 14:09] VITALS: BP 111/56
[2021-01-01 14:20] VITALS: BP 105/56
== END 2021-01-01 14:40 | disposition home or self-care (01) ==
LOC: M INFU 10:41
PROVIDERS: ATTEND Internal Medicine Hematology & Oncology
DX: C92.00 Acute myeloblastic leukemia, not having achieved remission (principal)
CPT/HCPCS: 36430; P9036

== ENCOUNTER → 2021-01-02 | Outpatient (CLI) | payer MEDICARE, OTHER ==
[~2021-01-02] MED LIST changes: -ACETAMINOPHEN TAB 650MG DOSE (2X325MG) PO SCH; -diphenhydrAMINE 25MG CAP PO SCH
== END ==
LOC: M LAB 16:43
PROVIDERS: ATTEND Internal Medicine Hematology & Oncology
DX: H91.90 Unspecified hearing loss, unspecified ear (principal)

== ENCOUNTER → 2021-01-04 | Outpatient (CLI) | payer MEDICARE, OTHER ==
[2021-01-04 11:41] LABS: HEMOGLOBIN 8.1 g/dl (13.5-17.5); MEAN CORPUSCULAR HEMOGLOBIN 34.5 pg (27.0-33.0); MEAN CORPUSCULAR HGB CONC 32.4 g/dl (32.0-36.5); MEAN CORPUSCULAR VOLUME 106.4 fl (80.0-96.0); RED BLOOD COUNT 2.35 10^6/uL (4.30-6.10); WHITE BLOOD COUNT 1.4 10^3/uL (4.0-10.0)
[2021-01-04 12:23] LABS: PLATELET COUNT, AUTOMATED 8 10^3/uL (150-450)
== END ==
LOC: M LAB 10:54
PROVIDERS: ATTEND Internal Medicine Hematology & Oncology
DX: H91.90 Unspecified hearing loss, unspecified ear (principal)

== ENCOUNTER → 2021-01-07 | Outpatient (CLI) | payer MEDICARE, OTHER ==
[2021-01-07 11:51] LABS: HEMATOCRIT 23.2 % (42.0-52.0); HEMOGLOBIN 7.6 g/dl (13.5-17.5); MEAN CORPUSCULAR HEMOGLOBIN 34.2 pg (27.0-33.0); MEAN CORPUSCULAR HGB CONC 32.8 g/dl (32.0-36.5); MEAN CORPUSCULAR VOLUME 104.5 fl (80.0-96.0); RED BLOOD COUNT 2.22 10^6/uL (4.30-6.10)
[2021-01-07 12:12] LABS: PLATELET COUNT, AUTOMATED 7 10^3/uL (150-450)
== END ==
LOC: M LAB 11:20
PROVIDERS: ATTEND Internal Medicine Hematology & Oncology
DX: H91.90 Unspecified hearing loss, unspecified ear (principal)

== ENCOUNTER → 2021-01-09 | Outpatient (CLI) | payer MEDICARE, OTHER ==
[2021-01-09 12:23] LABS: HEMATOCRIT 23.4 % (42.0-52.0); HEMOGLOBIN 7.8 g/dl (13.5-17.5); MEAN CORPUSCULAR HEMOGLOBIN 34.1 pg (27.0-33.0); MEAN CORPUSCULAR HGB CONC 33.3 g/dl (32.0-36.5); MEAN CORPUSCULAR VOLUME 102.2 fl (80.0-96.0); RED BLOOD COUNT 2.29 10^6/uL (4.30-6.10); WHITE BLOOD COUNT 1.1 10^3/uL (4.0-10.0)
[2021-01-09 12:28] LABS: PLATELET COUNT, AUTOMATED 4 10^3/uL (150-450)
== END ==
LOC: M LAB 10:49
PROVIDERS: ATTEND Internal Medicine Hematology & Oncology
DX: H91.90 Unspecified hearing loss, unspecified ear (principal); D64.9 Anemia, unspecified

== ENCOUNTER → 2021-01-10 | Outpatient (CLI) | payer MEDICARE, OTHER ==
[~2021-01-10] MED LIST changes: +ACETAMINOPHEN TAB 650MG DOSE (2X325MG) PO ONE; +diphenhydrAMINE 25MG CAP PO ONE
[2021-01-10 14:55] VITALS: BP 121/58
== END ==
LOC: M INFU 14:50
PROVIDERS: ATTEND Internal Medicine Hematology & Oncology
DX: C92.00 Acute myeloblastic leukemia, not having achieved remission (principal); Z53.29 Procedure and treatment not carried out because of patient's decision for other reasons

== ENCOUNTER 2021-01-11 08:30 | Outpatient (CLI) | payer MEDICARE, OTHER ==
[2021-01-11] VITALS (10 sets, daily range): BP systolic 103–132; BP diastolic 52–62
[~2021-01-11] VITALS: Ht 185.4 cm; Wt 90.9 kg
[~2021-01-11 08:30] MED LIST changes: -ACETAMINOPHEN TAB 650MG DOSE (2X325MG) PO ONE; -diphenhydrAMINE 25MG CAP PO ONE
[2021-01-11] MEDS ORDERED: ACETAMINOPHEN TAB 650MG DOSE (2X325MG) PO ONE ×2 (09:50→18:05)
[2021-01-11] MEDS ORDERED: diphenhydrAMINE 25MG CAP PO ONE ×2 (09:50→18:05)
[2021-01-11 10:31] LABS: HEMATOCRIT 21.3 % (42.0-52.0); MEAN CORPUSCULAR HEMOGLOBIN 33.5 pg (27.0-33.0); MEAN CORPUSCULAR HGB CONC 32.9 g/dl (32.0-36.5); MEAN CORPUSCULAR VOLUME 101.9 fl (80.0-96.0); RED BLOOD COUNT 2.09 10^6/uL (4.30-6.10); WHITE BLOOD COUNT 1.1 10^3/uL (4.0-10.0)
[2021-01-11 10:50] LABS: PLATELET COUNT, AUTOMATED 3 10^3/uL (150-450)
== END 2021-01-11 19:30 | disposition home or self-care (01) ==
LOC: M INFU 08:30
PROVIDERS: ATTEND Internal Medicine Hematology & Oncology
DX: C92.00 Acute myeloblastic leukemia, not having achieved remission (principal); Z88.1 Allergy status to other antibiotic agents
CPT/HCPCS: 36415; 36430; 85027; 85049; 85055; 86850; 86900; 86901; 86920; P9034; P9036; P9040

== ENCOUNTER → 2021-01-14 | Outpatient (CLI) | payer MEDICARE, OTHER ==
[2021-01-14 16:38] LABS: HEMATOCRIT 22.2 % (42.0-52.0); HEMOGLOBIN 7.3 g/dl (13.5-17.5); MEAN CORPUSCULAR HEMOGLOBIN 33.2 pg (27.0-33.0); MEAN CORPUSCULAR HGB CONC 32.9 g/dl (32.0-36.5); MEAN CORPUSCULAR VOLUME 100.9 fl (80.0-96.0)
[2021-01-14 16:39] LABS: PLATELET COUNT, AUTOMATED 7 10^3/uL (150-450)
== END ==
LOC: M LAB 16:02
PROVIDERS: ATTEND Internal Medicine Hematology & Oncology
DX: H91.90 Unspecified hearing loss, unspecified ear (principal)

== ENCOUNTER → 2021-01-16 | Outpatient (CLI) | payer MEDICARE, OTHER ==
[2021-01-16 13:07] LABS: HEMATOCRIT 25.5 % (42.0-52.0); HEMOGLOBIN 8.7 g/dl (13.5-17.5); MEAN CORPUSCULAR HEMOGLOBIN 33.9 pg (27.0-33.0); MEAN CORPUSCULAR HGB CONC 34.1 g/dl (32.0-36.5); MEAN CORPUSCULAR VOLUME 99.2 fl (80.0-96.0); RED BLOOD COUNT 2.57 10^6/uL (4.30-6.10)
[2021-01-16 13:11] LABS: PLATELET COUNT, AUTOMATED 4 10^3/uL (150-450); WHITE BLOOD COUNT 0.8 10^3/uL (4.0-10.0)
== END ==
LOC: M LAB 11:49
PROVIDERS: ATTEND Internal Medicine Hematology & Oncology
DX: H91.90 Unspecified hearing loss, unspecified ear (principal)

== ENCOUNTER → 2021-01-21 | Outpatient (CLI) | payer MEDICARE, OTHER ==
[2021-01-21 15:06] LABS: HEMATOCRIT 23.2 % (42.0-52.0); HEMOGLOBIN 7.8 g/dl (13.5-17.5); MEAN CORPUSCULAR HEMOGLOBIN 32.5 pg (27.0-33.0); MEAN CORPUSCULAR HGB CONC 33.6 g/dl (32.0-36.5); MEAN CORPUSCULAR VOLUME 96.7 fl (80.0-96.0); WHITE BLOOD COUNT 1.1 10^3/uL (4.0-10.0)
[2021-01-21 15:25] LABS: PLATELET COUNT, AUTOMATED 6 10^3/uL (150-450)
== END ==
LOC: M LAB 14:06
PROVIDERS: ATTEND Internal Medicine Hematology & Oncology
DX: H91.90 Unspecified hearing loss, unspecified ear (principal); Z79.899 Other long term (current) drug therapy

== ENCOUNTER → 2021-01-25 | Outpatient (CLI) | payer MEDICARE, OTHER ==
[2021-01-25 09:21] LABS: HEMOGLOBIN 7.7 g/dl (13.5-17.5); MEAN CORPUSCULAR HEMOGLOBIN 32.8 pg (27.0-33.0); MEAN CORPUSCULAR HGB CONC 33.5 g/dl (32.0-36.5); MEAN CORPUSCULAR VOLUME 97.9 fl (80.0-96.0); RED BLOOD COUNT 2.35 10^6/uL (4.30-6.10); WHITE BLOOD COUNT 1.1 10^3/uL (4.0-10.0)
[2021-01-25 09:29] LABS: PLATELET COUNT, AUTOMATED 8 10^3/uL (150-450)
== END ==
LOC: M LAB 08:28
PROVIDERS: ATTEND Internal Medicine Hematology & Oncology
DX: H91.90 Unspecified hearing loss, unspecified ear (principal)

== ENCOUNTER → 2021-01-28 | Outpatient (CLI) | payer MEDICARE, OTHER ==
[2021-01-28 09:55] LABS: MEAN CORPUSCULAR HEMOGLOBIN 32.7 pg (27.0-33.0); MEAN CORPUSCULAR HGB CONC 33.5 g/dl (32.0-36.5); MEAN CORPUSCULAR VOLUME 97.6 fl (80.0-96.0); RED BLOOD COUNT 2.11 10^6/uL (4.30-6.10); WHITE BLOOD COUNT 1.2 10^3/uL (4.0-10.0)
[2021-01-28 09:58] LABS: HEMATOCRIT 20.6 % (42.0-52.0); HEMOGLOBIN 6.9 g/dl (13.5-17.5); PLATELET COUNT, AUTOMATED 4 10^3/uL (150-450)
== END ==
LOC: M LAB 09:02
PROVIDERS: ATTEND Internal Medicine Hematology & Oncology
DX: H91.90 Unspecified hearing loss, unspecified ear (principal)

== ENCOUNTER 2021-02-01 13:14 | Outpatient (CLI) | payer MEDICARE, OTHER ==
[2021-02-01] VITALS (8 sets, daily range): BP systolic 114–122; BP diastolic 56–60
[~2021-02-01] VITALS: Ht 182.9 cm; Wt 0.6 kg
[~2021-02-01 13:14] MED LIST changes: +ACETAMINOPHEN TAB 650MG DOSE (2X325MG) PO SCH; +diphenhydrAMINE 25MG CAP PO SCH
== END 2021-02-01 21:40 | disposition home or self-care (01) ==
LOC: M INFU 13:14
PROVIDERS: ATTEND Internal Medicine Hematology & Oncology
DX: C92.00 Acute myeloblastic leukemia, not having achieved remission (principal); Z88.1 Allergy status to other antibiotic agents
CPT/HCPCS: 36415; 36430; 36592; 85027; 85049; 85055; 86850; 86900; 86901; 86920; P9036; P9040

== ENCOUNTER → 2021-02-01 | Outpatient (CLI) | payer MEDICARE, OTHER ==
[2021-02-01 10:46] LABS: MEAN CORPUSCULAR HEMOGLOBIN 31.9 pg (27.0-33.0); MEAN CORPUSCULAR HGB CONC 33.2 g/dl (32.0-36.5); MEAN CORPUSCULAR VOLUME 96.1 fl (80.0-96.0); RED BLOOD COUNT 2.07 10^6/uL (4.30-6.10); WHITE BLOOD COUNT 1.2 10^3/uL (4.0-10.0)
[2021-02-01 10:52] LABS: HEMATOCRIT 19.9 % (42.0-52.0); HEMOGLOBIN 6.6 g/dl (13.5-17.5)
[2021-02-01 10:53] LABS: PLATELET COUNT, AUTOMATED 4 10^3/uL (150-450)
== END ==
LOC: M LAB 09:25
PROVIDERS: ATTEND Internal Medicine Hematology & Oncology
DX: H91.90 Unspecified hearing loss, unspecified ear (principal); Z79.899 Other long term (current) drug therapy

== ENCOUNTER → 2021-02-04 | Outpatient (CLI) | payer MEDICARE, OTHER ==
[~2021-02-04] MED LIST changes: -ACETAMINOPHEN TAB 650MG DOSE (2X325MG) PO SCH; -diphenhydrAMINE 25MG CAP PO SCH
[2021-02-04 10:37] LABS: HEMATOCRIT 23.3 % (42.0-52.0); HEMOGLOBIN 7.8 g/dl (13.5-17.5); MEAN CORPUSCULAR HGB CONC 33.5 g/dl (32.0-36.5); MEAN CORPUSCULAR VOLUME 92.5 fl (80.0-96.0); RED BLOOD COUNT 2.52 10^6/uL (4.30-6.10); WHITE BLOOD COUNT 1.3 10^3/uL (4.0-10.0)
[2021-02-04 10:52] LABS: PLATELET COUNT, AUTOMATED 4 10^3/uL (150-450)
== END ==
LOC: M LAB 09:34
PROVIDERS: ATTEND Internal Medicine Hematology & Oncology
DX: H91.90 Unspecified hearing loss, unspecified ear (principal); Z79.899 Other long term (current) drug therapy

== ENCOUNTER → 2021-02-08 | Outpatient (CLI) | payer MEDICARE, OTHER ==
[~2021-02-08] MED LIST changes: -FLUC100T PO; +FLUC100T3 PO; -FLUC200T2 PO; +FLUC200T4 PO; -PROC10TA4 PO; +PROC10TA5 PO
[2021-02-08 12:34] LABS: HEMATOCRIT 23.1 % (42.0-52.0); HEMOGLOBIN 7.6 g/dl (13.5-17.5); MEAN CORPUSCULAR HGB CONC 32.9 g/dl (32.0-36.5); MEAN CORPUSCULAR VOLUME 91.3 fl (80.0-96.0); RED BLOOD COUNT 2.53 10^6/uL (4.30-6.10)
[2021-02-08 12:40] LABS: PLATELET COUNT, AUTOMATED 5 10^3/uL (150-450)
== END ==
LOC: M LAB 10:35
PROVIDERS: ATTEND Internal Medicine Hematology & Oncology
DX: H91.90 Unspecified hearing loss, unspecified ear (principal); Z79.899 Other long term (current) drug therapy

== ENCOUNTER → 2021-02-11 | Outpatient (CLI) | payer MEDICARE, OTHER ==
[~2021-02-11] MED LIST changes: +FLUC100T PO; -FLUC100T3 PO; +FLUC200T2 PO; -FLUC200T4 PO; +PROC10TA4 PO; -PROC10TA5 PO
[2021-02-11 10:42] LABS: HEMATOCRIT 22.1 % (42.0-52.0); HEMOGLOBIN 7.3 g/dl (13.5-17.5); MEAN CORPUSCULAR HEMOGLOBIN 30.7 pg (27.0-33.0); MEAN CORPUSCULAR VOLUME 92.9 fl (80.0-96.0); RED BLOOD COUNT 2.38 10^6/uL (4.30-6.10); WHITE BLOOD COUNT 2.1 10^3/uL (4.0-10.0)
[2021-02-11 10:45] LABS: PLATELET COUNT, AUTOMATED 8 10^3/uL (150-450)
== END ==
LOC: M LAB 09:58
PROVIDERS: ATTEND Internal Medicine Hematology & Oncology
DX: H91.90 Unspecified hearing loss, unspecified ear (principal)

== ENCOUNTER 2021-02-12 13:31 | Outpatient (CLI) | payer MEDICARE, OTHER ==
[~2021-02-12] VITALS: Ht 182.9 cm; Wt 86.4 kg
[~2021-02-12 13:31] MED LIST changes: +ACETAMINOPHEN TAB 650MG DOSE (2X325MG) PO SCH; +diphenhydrAMINE 25MG CAP PO SCH
[2021-02-12 13:35] VITALS: BP 127/58
[2021-02-12 14:03] VITALS: BP 127/58
[2021-02-12 14:20] VITALS: BP 107/57
[2021-02-12 15:45] VITALS: BP 104/60
== END 2021-02-12 15:46 | disposition home or self-care (01) ==
LOC: M INFU 13:31
PROVIDERS: ATTEND Internal Medicine Hematology & Oncology
DX: C92.00 Acute myeloblastic leukemia, not having achieved remission (principal); Z88.1 Allergy status to other antibiotic agents
CPT/HCPCS: 36430; P9036

== ENCOUNTER → 2021-02-13 | Outpatient (CLI) | payer MEDICARE, OTHER ==
[~2021-02-13] MED LIST changes: -ACETAMINOPHEN TAB 650MG DOSE (2X325MG) PO SCH; -diphenhydrAMINE 25MG CAP PO SCH
[2021-02-13 15:34] LABS: HEMATOCRIT 21.1 % (42.0-52.0); MEAN CORPUSCULAR HEMOGLOBIN 30.4 pg (27.0-33.0); MEAN CORPUSCULAR HGB CONC 32.7 g/dl (32.0-36.5); RED BLOOD COUNT 2.27 10^6/uL (4.30-6.10)
[2021-02-13 17:12] LABS: PLATELET COUNT, AUTOMATED 17 10^3/uL (150-450); WHITE BLOOD COUNT 3.3 10^3/uL (4.0-10.0)
[2021-02-13 17:13] LABS: HEMOGLOBIN 6.9 g/dl (13.5-17.5)
[2021-02-13 19:23] LABS: ANISOCYTOSIS 3+; BASOPHILS 4 % (0-1); BLAST CELLS 38 % (0-0); EOSINOPHILS 3 % (0-3); LYMPHOCYTES 50 % (16-44); MONOCYTES 2 % (0-5); NEUTROPHILS 3 % (28-66)
[2021-02-13 19:28] LABS: PLATELET ESTIMATE MARKED DECREASE (NORMAL)
== END ==
LOC: M LAB 14:31
PROVIDERS: ATTEND Internal Medicine Hematology & Oncology
DX: H91.90 Unspecified hearing loss, unspecified ear (principal); D64.9 Anemia, unspecified

== ENCOUNTER → 2021-02-14 | Outpatient (CLI) | payer MEDICARE, OTHER | LOC: M LAB 11:28 | PROVIDERS: ATTEND Internal Medicine Hematology & Oncology | DX: C92.00 Acute myeloblastic leukemia, not having achieved remission (principal) ==

== ENCOUNTER 2021-02-15 12:10 | Outpatient (CLI) | payer MEDICARE, OTHER ==
[~2021-02-15] VITALS: Ht 182.9 cm; Wt 86.4 kg
[~2021-02-15 12:10] MED LIST changes: +ACETAMINOPHEN TAB 650MG DOSE (2X325MG) PO SCH; +diphenhydrAMINE 25MG CAP PO SCH
[2021-02-15 12:40] VITALS: BP 111/54
[2021-02-15 12:47] LABS: MEAN CORPUSCULAR HEMOGLOBIN 30.1 pg (27.0-33.0); MEAN CORPUSCULAR HGB CONC 32.3 g/dl (32.0-36.5); MEAN CORPUSCULAR VOLUME 93.1 fl (80.0-96.0); RED BLOOD COUNT 2.16 10^6/uL (4.30-6.10)
[2021-02-15 12:51] LABS: HEMATOCRIT 20.1 % (42.0-52.0); WHITE BLOOD COUNT 5.3 10^3/uL (4.0-10.0)
[2021-02-15 12:56] LABS: HEMOGLOBIN 6.5 g/dl (13.5-17.5)
[2021-02-15 12:57] LABS: PLATELET COUNT, AUTOMATED 10 10^3/uL (150-450)
[2021-02-15 13:15] VITALS: BP 128/60
[2021-02-15 13:41] LABS: ANISOCYTOSIS 2+; BASOPHILS 2 % (0-1); BLAST CELLS 44 % (0-0); EOSINOPHILS 2 % (0-3); LYMPHOCYTES 43 % (16-44); MONOCYTES 4 % (0-5); NEUTROPHILS 5 % (28-66); PLATELET ESTIMATE MARKED DECREASE (NORMAL)
[2021-02-15 13:45] VITALS: BP 114/57
[2021-02-15 14:45] VITALS: BP 127/60
[2021-02-15 16:10] VITALS: BP 130/59
== END 2021-02-15 14:30 | disposition home or self-care (01) ==
LOC: M INFU 12:10
PROVIDERS: ATTEND Internal Medicine Hematology & Oncology
DX: C92.00 Acute myeloblastic leukemia, not having achieved remission (principal); Z88.1 Allergy status to other antibiotic agents
CPT/HCPCS: 36430; 36592; 85025; 85049; 85055; P9040

== ENCOUNTER → 2021-02-18 | Outpatient (CLI) | payer MEDICARE, OTHER ==
[~2021-02-18] MED LIST changes: -ACETAMINOPHEN TAB 650MG DOSE (2X325MG) PO SCH; -diphenhydrAMINE 25MG CAP PO SCH
[2021-02-18 11:19] LABS: HEMATOCRIT 23.6 % (42.0-52.0); HEMOGLOBIN 7.8 g/dl (13.5-17.5); MEAN CORPUSCULAR HEMOGLOBIN 29.8 pg (27.0-33.0); MEAN CORPUSCULAR HGB CONC 33.1 g/dl (32.0-36.5); MEAN CORPUSCULAR VOLUME 90.1 fl (80.0-96.0); RED BLOOD COUNT 2.62 10^6/uL (4.30-6.10)
[2021-02-18 11:25] LABS: WHITE BLOOD COUNT 8.6 10^3/uL (4.0-10.0)
[2021-02-18 11:32] LABS: PLATELET COUNT, AUTOMATED 7 10^3/uL (150-450)
[2021-02-18 12:46] LABS: ATYPICAL LYMPH 2 % (0-5); BLAST CELLS 40 % (0-0); EOSINOPHILS 1 % (0-3); LYMPHOCYTES 39 % (16-44); METAMYELOCYTES 1 % (0-0); MONOCYTES 10 % (0-5); MYELOCYTES 2 % (0-0); NEUTROPHILS 5 % (28-66)
[2021-02-18 12:47] LABS: PLATELET ESTIMATE DECREASED (NORMAL)
[2021-02-18 12:48] LABS: ANISOCYTOSIS 1+; OVALOCYTES 1+; POIKILOCYTOSIS 1+
== END ==
LOC: M LAB 10:17
PROVIDERS: ATTEND Internal Medicine Hematology & Oncology
DX: C92.00 Acute myeloblastic leukemia, not having achieved remission (principal)

== ENCOUNTER 2021-02-22 17:02 | Emergency (ER) | payer MEDICARE, OTHER ==
[~2021-02-22] VITALS: Ht 185.4 cm; Wt 89.1 kg
[2021-02-22] MEDS ORDERED: ACETAMINOPHEN 325 MG TAB PO ONE (18:35)
[2021-02-22 19:20] LABS: MEAN CORPUSCULAR HEMOGLOBIN 29.5 pg (27.0-33.0); MEAN CORPUSCULAR HGB CONC 32.5 g/dl (32.0-36.5); MEAN CORPUSCULAR VOLUME 90.6 fl (80.0-96.0); RED BLOOD COUNT 2.24 10^6/uL (4.30-6.10)
[2021-02-22 19:22] LABS: HEMATOCRIT 20.3 % (42.0-52.0); HEMOGLOBIN 6.6 g/dl (13.5-17.5); PLATELET COUNT, AUTOMATED 15 10^3/uL (150-450); WHITE BLOOD COUNT 27.2 10^3/uL (4.0-10.0)
[2021-02-22 19:32] LABS: INR 1.41; PARTIAL THROMBOPLASTIN TIME 43.1 SECONDS (25.9-37.0); PROTHROMBIN TIME 17.6 SECONDS (12.7-14.5)
[2021-02-22] MEDS ORDERED: CEFEPIME HCL 2 GM in D5W MINI-BAG PLUS 50 ML IV ONE (19:40)
[2021-02-22 19:48] LABS: ALBUMIN 3.5 GM/DL (3.2-5.2); ALT/SGPT 19 U/L (12-78); AMYLASE 19 U/L (25-115); BILIRUBIN,DIRECT 0.1 MG/DL (0.0-0.2); BILIRUBIN,TOTAL 0.2 MG/DL (0.2-1.0); BLOOD UREA NITROGEN 18 MG/DL (7-18); C REACTIVE PROTEIN QUANTITATIV 6.67 MG/DL (0.00-0.30); CALCIUM LEVEL 8.8 MG/DL (8.8-10.2); CARBON DIOXIDE LEVEL 29 MEQ/L (21-32); CHLORIDE LEVEL 106 MEQ/L (98-107); CK-MB VALUE MASS < 1.0 NG/ML (<3.6); CPK CREATINE PHOSPHOKINASE 27 U/L (39-308); CREATININE FOR GFR 0.92 MG/DL (0.70-1.30); GLOMERULAR FILTRATION RATE > 60.0 (>42); GLUCOSE, FASTING 102 MG/DL (70-100); POTASSIUM SERUM 4.1 MEQ/L (3.5-5.1); SODIUM LEVEL 138 MEQ/L (136-145); TOTAL PROTEIN 6.4 GM/DL (6.4-8.2); TROPONIN I < 0.02 NG/ML (< 0.10)
[2021-02-22 19:59] LABS: URIC ACID 3.7 MG/DL (3.5-7.2)
--- NOTE | 2021-02-22 20:00 | REP ---
INDICATION: SEPSIS/SHOCK COMPARISON: None. TECHNIQUE: Portable AP view of the chest FINDINGS: The mediastinum and cardiac silhouette are stable and within normal limits for portable technique. The lung barton are clear without acute consolidation, effusion, or pneumothorax. Skeletal structures are intact. IMPRESSION: No acute cardiopulmonary process appreciated. No focal consolidation or effusion. <Electronically signed by Micha Tubbs > 02/22/211956
[2021-02-22 20:12] LABS: BASOPHILS 4 % (0-1); LYMPHOCYTES 19 % (16-44); METAMYELOCYTES 1 % (0-0); MONOCYTES 9 % (0-5); MYELOCYTES 1 % (0-0); NEUTROPHILS 2 % (28-66); PROMYELOCYTES 3 % (0-0)
[2021-02-22 20:14] LABS: ATYPICAL LYMPH 6 % (0-5); BLAST CELLS 54 % (0-0); PLATELET ESTIMATE MARKED DECREASE (NORMAL)
[2021-02-22 20:15] LABS: ANISOCYTOSIS 1+
[2021-02-22 20:29] LABS: APPEARANCE, URINE CLEAR (CLEAR); BACTERIA, URINE AUTO NEGATIVE (NEGATIVE); BILIRUBIN, URINE AUTO NEGATIVE (NEGATIVE); BLOOD, URINE BLOOD NEGATIVE (NEGATIVE); COLOR, URINE YELLOW (YELLOW); GLUCOSE, URINE (UA) AUTO NEGATIVE (NEGATIVE); KETONE, URINE AUTO NEGATIVE (NEGATIVE); LEUKOCYTE ESTERASE, URINE AUTO NEGATIVE (NEGATIVE); NITRITE, URINE AUTO NEGATIVE (NEGATIVE); PROTEIN, URINE AUTO NEGATIVE (NEGATIVE); RBC, URINE AUTO 1 /HPF (0-3); SPECIFIC GRAVITY URINE AUTO 1.012 (1.002-1.035); SQUAMOUS EPITHELIAL CELL UR AU 0 /HPF (0-6); UROBILINOGEN, URINE AUTO 0.2 mg/dL (0.0-2.0); WBC, URINE AUTO 0 /HPF (0-3)
--- NOTE | 2021-02-22 20:29 | REPVR ---
PROCEDURE INFORMATION: Exam: XR Left Wrist Exam date and time: 02/22/2021 8:00 PM Age: 76 years old Clinical indication: Pain; Wrist; Left; Additional info: Pain, wrist, left TECHNIQUE: Imaging protocol: XR Left wrist. Views: 3 or more views. COMPARISON: No relevant prior studies available. FINDINGS: Bones/joints: There is irregularity at the medial aspect of the distal radius. Clinical correlation to exclude a fracture in the appropriate clinical setting is suggested as fracture exclusion in the setting of osteoporosis is difficult. Degenerative changes in the radiocarpal joint. Calcifications in the TFCC. Mild degenerative changes in the triscaphe joint. Soft tissues: Normal. IMPRESSION: There is irregularity at the medial aspect of the distal radius. Clinical correlation to exclude a fracture in the appropriate clinical setting is suggested as fracture exclusion in the setting of osteoporosis is difficult. Electronically signed by: Maynor Culp On 02/22/2021 20:28:35 PM
[2021-02-22] MEDS ORDERED: NS 500 ML IV ONE (22:00)
[2021-02-22] MEDS ORDERED: VANCOMYCIN HCL 1,000 MG, VIAL MATE ADAPTER 1 EACH in NS 250 ML IV ONE (22:15)
[2021-02-22 23:30] VITALS: BP 122/59
--- NOTE | 2021-02-24 08:47 | ECGEPIP ---
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
== END 2021-02-22 23:38 | disposition short-term general hospital (02) ==
LOC: M ED 17:02
DX: S52.125A Nondisplaced fracture of head of left radius, initial encounter for closed fracture (principal); X58.XXXA Exposure to other specified factors, initial encounter; Y92.9 Unspecified place or not applicable; Y93.9 Activity, unspecified; Y99.9 Unspecified external cause status; D69.6 Thrombocytopenia, unspecified; D64.9 Anemia, unspecified; C95.00 Acute leukemia of unspecified cell type not having achieved remission; I25.10 Atherosclerotic heart disease of native coronary artery without angina pectoris; E78.5 Hyperlipidemia, unspecified; N40.0 Benign prostatic hyperplasia without lower urinary tract symptoms; G47.33 Obstructive sleep apnea (adult) (pediatric); E21.3 Hyperparathyroidism, unspecified; Z87.891 Personal history of nicotine dependence; Z79.899 Other long term (current) drug therapy; Z88.0 Allergy status to penicillin
CPT/HCPCS: 71045; 73110; 80048; 80076; 81001; 82150; 82550; 82553; 83605; 84484; 84550; 85025; 85049; 85055; 85610; 85730; 86140; 86850; 86900; 86901; 87040; 87086; 87798; 93005; 93041; 94760; 96365; 96366; 96367; 99285; J0692; J3370

== ENCOUNTER → 2021-04-08 | Outpatient (CLI) | payer MEDICARE, OTHER ==
[2021-04-08 10:31] LABS: HEMATOCRIT 22.9 % (42.0-52.0); HEMOGLOBIN 7.5 g/dl (13.5-17.5); MEAN CORPUSCULAR HEMOGLOBIN 26.9 pg (27.0-33.0); MEAN CORPUSCULAR HGB CONC 32.8 g/dl (32.0-36.5); MEAN CORPUSCULAR VOLUME 82.1 fl (80.0-96.0); RED BLOOD COUNT 2.79 10^6/uL (4.30-6.10); WHITE BLOOD COUNT 1.2 10^3/uL (4.0-10.0)
[2021-04-08 10:41] LABS: PLATELET COUNT, AUTOMATED 3 10^3/uL (150-450)
[2021-04-08 11:05] LABS: ALT/SGPT 22 U/L (12-78); BILIRUBIN,TOTAL 0.3 MG/DL (0.2-1.0); BLOOD UREA NITROGEN 16 MG/DL (7-18); CALCIUM LEVEL 9.3 MG/DL (8.8-10.2); CARBON DIOXIDE LEVEL 24 MEQ/L (21-32); CHLORIDE LEVEL 106 MEQ/L (98-107); CREATININE FOR GFR 0.72 MG/DL (0.70-1.30); GLOMERULAR FILTRATION RATE > 60.0 (>42); GLUCOSE, FASTING 194 MG/DL (70-100); POTASSIUM SERUM 3.7 MEQ/L (3.5-5.1); SODIUM LEVEL 138 MEQ/L (136-145); TOTAL PROTEIN 5.8 GM/DL (6.4-8.2)
[2021-04-08 11:21] LABS: ATYPICAL LYMPH 10 % (0-5); BLAST CELLS 16 % (0-0); LYMPHOCYTES 73 % (16-44); NEUTROPHILS 1 % (28-66); PLATELET ESTIMATE MARKED DECREASE (NORMAL)
[2021-04-08 11:22] LABS: MICROCYTOSIS 1+; OVALOCYTES 1+
== END ==
LOC: M LAB 09:31
PROVIDERS: ATTEND Internal Medicine Hematology & Oncology
DX: C92.00 Acute myeloblastic leukemia, not having achieved remission (principal)

== ENCOUNTER → 2021-04-12 | Outpatient (CLI) | payer MEDICARE, OTHER ==
[2021-04-12 09:46] LABS: HEMATOCRIT 24.3 % (42.0-52.0); HEMOGLOBIN 8.2 g/dl (13.5-17.5); MEAN CORPUSCULAR HEMOGLOBIN 27.5 pg (27.0-33.0); MEAN CORPUSCULAR HGB CONC 33.7 g/dl (32.0-36.5); MEAN CORPUSCULAR VOLUME 81.5 fl (80.0-96.0); RED BLOOD COUNT 2.98 10^6/uL (4.30-6.10); WHITE BLOOD COUNT 2.9 10^3/uL (4.0-10.0)
[2021-04-12 10:06] LABS: PLATELET COUNT, AUTOMATED 6 10^3/uL (150-450)
[2021-04-12 10:50] LABS: ATYPICAL LYMPH 5 % (0-5); BASOPHILS 1 % (0-1); BLAST CELLS 57 % (0-0); LYMPHOCYTES 27 % (16-44); MONOCYTES 10 % (0-5); PLATELET ESTIMATE MARKED DECREASE (NORMAL)
[2021-04-12 10:54] LABS: ANISOCYTOSIS 1+
[2021-04-12 12:25] LABS: ALBUMIN 2.8 GM/DL (3.2-5.2); ALT/SGPT 24 U/L (12-78); BILIRUBIN,TOTAL 0.3 MG/DL (0.2-1.0); BLOOD UREA NITROGEN 11 MG/DL (7-18); CARBON DIOXIDE LEVEL 28 MEQ/L (21-32); CHLORIDE LEVEL 109 MEQ/L (98-107); CREATININE FOR GFR 0.66 MG/DL (0.70-1.30); GLOMERULAR FILTRATION RATE > 60.0 (>42); GLUCOSE, FASTING 105 MG/DL (70-100); POTASSIUM SERUM 4.3 MEQ/L (3.5-5.1); SODIUM LEVEL 142 MEQ/L (136-145); TOTAL PROTEIN 5.8 GM/DL (6.4-8.2)
== END ==
LOC: M LAB 08:02
PROVIDERS: ATTEND Internal Medicine Hematology & Oncology
DX: C92.00 Acute myeloblastic leukemia, not having achieved remission (principal)

== ENCOUNTER → 2021-04-15 | Outpatient (CLI) | payer MEDICARE, OTHER ==
[2021-04-15 09:35] LABS: HEMATOCRIT 25.4 % (42.0-52.0); HEMOGLOBIN 8.5 g/dl (13.5-17.5); MEAN CORPUSCULAR HEMOGLOBIN 27.6 pg (27.0-33.0); MEAN CORPUSCULAR HGB CONC 33.5 g/dl (32.0-36.5); MEAN CORPUSCULAR VOLUME 82.5 fl (80.0-96.0); RED BLOOD COUNT 3.08 10^6/uL (4.30-6.10)
[2021-04-15 09:37] LABS: PLATELET COUNT, AUTOMATED 4 10^3/uL (150-450)
[2021-04-15 10:07] LABS: ALBUMIN 2.9 GM/DL (3.2-5.2); ALT/SGPT 16 U/L (12-78); BILIRUBIN,TOTAL 0.3 MG/DL (0.2-1.0); BLOOD UREA NITROGEN 14 MG/DL (7-18); CALCIUM LEVEL 9.1 MG/DL (8.8-10.2); CARBON DIOXIDE LEVEL 25 MEQ/L (21-32); CHLORIDE LEVEL 108 MEQ/L (98-107); CREATININE FOR GFR 0.66 MG/DL (0.70-1.30); GLOMERULAR FILTRATION RATE > 60.0 (>42); GLUCOSE, FASTING 110 MG/DL (70-100); POTASSIUM SERUM 4.2 MEQ/L (3.5-5.1); SODIUM LEVEL 139 MEQ/L (136-145); TOTAL PROTEIN 5.8 GM/DL (6.4-8.2)
[2021-04-15 10:12] LABS: ANISOCYTOSIS 1+; ATYPICAL LYMPH 14 % (0-5); BASOPHILS 1 % (0-1); BLAST CELLS 2 % (0-0); LYMPHOCYTES 78 % (16-44); MONOCYTES 4 % (0-5); NEUTROPHILS 1 % (28-66); PLATELET ESTIMATE MARKED DECREASE (NORMAL)
== END ==
LOC: M LAB 08:19
PROVIDERS: ATTEND Internal Medicine Hematology & Oncology
DX: C92.00 Acute myeloblastic leukemia, not having achieved remission (principal)

== ENCOUNTER → 2021-04-18 | Outpatient (CLI) | payer MEDICARE, OTHER ==
[2021-04-18 10:48] LABS: HEMATOCRIT 26.1 % (42.0-52.0); HEMOGLOBIN 8.7 g/dl (13.5-17.5); MEAN CORPUSCULAR HEMOGLOBIN 27.7 pg (27.0-33.0); MEAN CORPUSCULAR HGB CONC 33.3 g/dl (32.0-36.5); MEAN CORPUSCULAR VOLUME 83.1 fl (80.0-96.0); RED BLOOD COUNT 3.14 10^6/uL (4.30-6.10); WHITE BLOOD COUNT 9.7 10^3/uL (4.0-10.0)
[2021-04-18 10:53] LABS: PLATELET COUNT, AUTOMATED 10 10^3/uL (150-450)
[2021-04-18 11:20] LABS: ALBUMIN 2.7 GM/DL (3.2-5.2); ALT/SGPT 15 U/L (12-78); BILIRUBIN,TOTAL 0.3 MG/DL (0.2-1.0); BLOOD UREA NITROGEN 14 MG/DL (7-18); CALCIUM LEVEL 9.2 MG/DL (8.8-10.2); CARBON DIOXIDE LEVEL 25 MEQ/L (21-32); CHLORIDE LEVEL 109 MEQ/L (98-107); CREATININE FOR GFR 0.65 MG/DL (0.70-1.30); GLOMERULAR FILTRATION RATE > 60.0 (>42); GLUCOSE, FASTING 167 MG/DL (70-100); POTASSIUM SERUM 4.1 MEQ/L (3.5-5.1); SODIUM LEVEL 139 MEQ/L (136-145); TOTAL PROTEIN 5.8 GM/DL (6.4-8.2)
[2021-04-18 11:46] LABS: ATYPICAL LYMPH 7 % (0-5); BASOPHILS 2 % (0-1); BLAST CELLS 52 % (0-0); LYMPHOCYTES 39 % (16-44)
[2021-04-18 11:48] LABS: PLATELET ESTIMATE MARKED DECREASE (NORMAL)
== END ==
LOC: M LAB 10:12
PROVIDERS: ATTEND Internal Medicine Hematology & Oncology
DX: H91.90 Unspecified hearing loss, unspecified ear (principal)

== ENCOUNTER 2021-04-19 11:13 | Outpatient (CLI) | payer MEDICARE, OTHER ==
[~2021-04-19] VITALS: Ht 185.4 cm; Wt 89.0 kg
[2021-04-19 11:15] VITALS: BP 111/54
[2021-04-19] MEDS ORDERED: diphenhydrAMINE 25MG CAP PO SCH (12:00)
[2021-04-19] MEDS ORDERED: ACETAMINOPHEN TAB 650MG DOSE (2X325MG) PO SCH (12:00)
[2021-04-19 13:00] VITALS: BP 104/53
[2021-04-19 14:20] VITALS: BP 100/53
[2021-04-19 15:00] VITALS: BP 104/56
== END 2021-04-19 15:00 | disposition home or self-care (01) ==
LOC: M INFU 11:13
PROVIDERS: ATTEND Internal Medicine Hematology & Oncology
DX: C92.00 Acute myeloblastic leukemia, not having achieved remission (principal); Z88.1 Allergy status to other antibiotic agents
CPT/HCPCS: 36430; P9034

== ENCOUNTER → 2021-04-26 | Outpatient (CLI) | payer MEDICARE, OTHER ==
[2021-04-26 11:22] LABS: HEMOGLOBIN 8.3 g/dl (13.5-17.5); MEAN CORPUSCULAR HEMOGLOBIN 27.5 pg (27.0-33.0); MEAN CORPUSCULAR HGB CONC 33.2 g/dl (32.0-36.5); MEAN CORPUSCULAR VOLUME 82.8 fl (80.0-96.0); RED BLOOD COUNT 3.02 10^6/uL (4.30-6.10); WHITE BLOOD COUNT 38.7 10^3/uL (4.0-10.0)
[2021-04-26 11:23] LABS: PLATELET COUNT, AUTOMATED 17 10^3/uL (150-450)
[2021-04-26 11:46] LABS: ALBUMIN 2.5 GM/DL (3.2-5.2); ALT/SGPT 13 U/L (12-78); BILIRUBIN,TOTAL 0.3 MG/DL (0.2-1.0); BLOOD UREA NITROGEN 14 MG/DL (7-18); CALCIUM LEVEL 8.8 MG/DL (8.8-10.2); CARBON DIOXIDE LEVEL 26 MEQ/L (21-32); CHLORIDE LEVEL 107 MEQ/L (98-107); CREATININE FOR GFR 0.66 MG/DL (0.70-1.30); GLOMERULAR FILTRATION RATE > 60.0 (>42); GLUCOSE, FASTING 118 MG/DL (70-100); SODIUM LEVEL 138 MEQ/L (136-145); TOTAL PROTEIN 5.5 GM/DL (6.4-8.2)
[2021-04-26 12:00] LABS: EOSINOPHILS 1 % (0-3); LYMPHOCYTES 24 % (16-44); MONOCYTES 10 % (0-5); NEUTROPHILS 6 % (28-66)
[2021-04-26 12:03] LABS: ATYPICAL LYMPH 8 % (0-5); BLAST CELLS 42 % (0-0)
[2021-04-26 12:04] LABS: ANISOCYTOSIS 1+; HYPOCHROMASIA 1+; MICROCYTOSIS 1+; PLATELET ESTIMATE MARKED DECREASE (NORMAL)
== END ==
LOC: M LAB 10:39
PROVIDERS: ATTEND Internal Medicine Hematology & Oncology
DX: C92.00 Acute myeloblastic leukemia, not having achieved remission (principal)

== ENCOUNTER → 2021-05-02 | Outpatient (CLI) | payer MEDICARE, OTHER ==
[2021-05-02 10:16] LABS: HEMATOCRIT 24.5 % (42.0-52.0); HEMOGLOBIN 8.1 g/dl (13.5-17.5); MEAN CORPUSCULAR HEMOGLOBIN 27.9 pg (27.0-33.0); MEAN CORPUSCULAR HGB CONC 33.1 g/dl (32.0-36.5); MEAN CORPUSCULAR VOLUME 84.5 fl (80.0-96.0)
[2021-05-02 10:17] LABS: PLATELET COUNT, AUTOMATED 26 10^3/uL (150-450); WHITE BLOOD COUNT 51.8 10^3/uL (4.0-10.0)
[2021-05-02 10:48] LABS: ALBUMIN 2.7 GM/DL (3.2-5.2); ALT/SGPT 12 U/L (12-78); BILIRUBIN,TOTAL 0.2 MG/DL (0.2-1.0); BLOOD UREA NITROGEN 22 MG/DL (7-18); CALCIUM LEVEL 9.1 MG/DL (8.8-10.2); CARBON DIOXIDE LEVEL 26 MEQ/L (21-32); CHLORIDE LEVEL 109 MEQ/L (98-107); CREATININE FOR GFR 0.73 MG/DL (0.70-1.30); GLOMERULAR FILTRATION RATE > 60.0 (>42); GLUCOSE, FASTING 202 MG/DL (70-100); SODIUM LEVEL 140 MEQ/L (136-145); TOTAL PROTEIN 5.6 GM/DL (6.4-8.2)
[2021-05-02 10:51] LABS: ATYPICAL LYMPH 1 % (0-5); BASOPHILS 2 % (0-1); EOSINOPHILS 1 % (0-3); LYMPHOCYTES 2 % (16-44); METAMYELOCYTES 3 % (0-0); MYELOCYTES 68 % (0-0); NEUTROPHILS 12 % (28-66); PLATELET ESTIMATE MARKED DECREASE (NORMAL)
== END ==
LOC: M LAB 09:32
PROVIDERS: ATTEND Internal Medicine Hematology & Oncology
DX: C92.00 Acute myeloblastic leukemia, not having achieved remission (principal)

== ENCOUNTER → 2021-05-10 | Outpatient (CLI) | payer MEDICARE, OTHER ==
[2021-05-10 10:25] LABS: MEAN CORPUSCULAR HEMOGLOBIN 27.6 pg (27.0-33.0); MEAN CORPUSCULAR HGB CONC 33.2 g/dl (32.0-36.5); MEAN CORPUSCULAR VOLUME 83.3 fl (80.0-96.0); RED BLOOD COUNT 2.46 10^6/uL (4.30-6.10)
[2021-05-10 11:05] LABS: HEMATOCRIT 20.5 % (42.0-52.0); HEMOGLOBIN 6.8 g/dl (13.5-17.5); PLATELET COUNT, AUTOMATED 32 10^3/uL (150-450)
[2021-05-10 12:07] LABS: EOSINOPHILS 1 % (0-3); LYMPHOCYTES 7 % (16-44); METAMYELOCYTES 10 % (0-0); MONOCYTES 5 % (0-5); MYELOCYTES 9 % (0-0); NEUTROPHILS 27 % (28-66); PROMYELOCYTES 1 % (0-0)
[2021-05-10 12:08] LABS: ANISOCYTOSIS 2+; BLAST CELLS 37 % (0-0); PLATELET ESTIMATE MARKED DECREASE (NORMAL)
== END ==
LOC: M LAB 09:44
PROVIDERS: ATTEND Internal Medicine Hematology & Oncology
DX: H91.93 Unspecified hearing loss, bilateral (principal)